=== PATIENT | female | born 1995 | race Caucasian/White ===

== ENCOUNTER 2017-01-18 17:54 | Emergency (ER) | payer OTHER ==
[~2017-01-18] VITALS: Ht 160 cm; Wt 59.0 kg
[~2017-01-18 17:54] MED LIST: ACET500C OR; CARB20TAXR PO; DARV100T; IBUP60TA PO; No Historical Meds; PERCOCET PO
[2017-01-18] MEDS ORDERED: NORT10CA2 PO (18:19)
[2017-01-18 18:41] LABS: MEAN CORPUSCULAR HEMOGLOBIN 30.3 pg (27.0-33.0); MEAN CORPUSCULAR HGB CONC 34.8 g/dl (32.0-36.5); MEAN CORPUSCULAR VOLUME 87.2 fl (80.0-96.0); RED CELL DISTRIBUTION WIDTH 11.7 % (11.5-14.5); WHITE BLOOD COUNT 6.8 K/mm3 (4.0-10.0)
[2017-01-18 19:02] LABS: ANION GAP 6 MEQ/L (8-16); BLOOD UREA NITROGEN 16 MG/DL (7-18); CALCIUM LEVEL 8.3 MG/DL (8.5-10.1); CARBON DIOXIDE LEVEL 30 MEQ/L (21-32); CHLORIDE LEVEL 109 MEQ/L (98-107); CREATININE FOR GFR 0.72 MG/DL (0.55-1.02); GLOMERULAR FILTRATION RATE > 60.0 (>60); GLUCOSE, FASTING 91 MG/DL (70-105); POTASSIUM SERUM 4.2 MEQ/L (3.5-5.1); SODIUM LEVEL 145 MEQ/L (136-145)
[2017-01-18 19:41] VITALS: BP 120/61
== END 2017-01-18 20:02 | disposition home or self-care (01) ==
LOC: EDBD 17:54 → M ED 19:46
DX: F41.9 Anxiety disorder, unspecified (principal); G40.909 Epilepsy, unspecified, not intractable, without status epilepticus; Z79.899 Other long term (current) drug therapy; Z88.5 Allergy status to narcotic agent; Z88.0 Allergy status to penicillin; Z88.1 Allergy status to other antibiotic agents; Z88.2 Allergy status to sulfonamides; Z87.891 Personal history of nicotine dependence; F51.5 Nightmare disorder

== ENCOUNTER → 2017-04-07 | Outpatient (REF) | payer OTHER ==
[~2017-04-07] MED LIST changes: +NORT10CA2 PO
== END ==
LOC: M LAB REF 20:27
PROVIDERS: ATTEND Physician Assistant
DX: R35.0 Frequency of micturition (principal)

== ENCOUNTER → 2017-04-09 | Outpatient (REF) | payer OTHER | LOC: M LAB REF 12:21 | PROVIDERS: ATTEND Physician Assistant | DX: J02.9 Acute pharyngitis, unspecified (principal) ==

== ENCOUNTER → 2017-06-13 | Outpatient (REF) | payer OTHER ==
[~2017-06-13] MED LIST changes: +FOLI1TAB4; +ZOFR4TAB3 PO
[2017-06-13 13:40] LABS: BASO % 0.6 % (0.0-1.0); EOS % 0.2 % (0.0-3.0); LARGE UNSTAINED CELL # 0.1 K/mm3 (0.0-0.4); LARGE UNSTAINED CELL % 2.2 % (0.0-4.0); LYMPH # 1.8 K/mm3 (1.5-6.5); LYMPH % 30.9 % (24.0-44.0); MEAN CORPUSCULAR HEMOGLOBIN 30.4 pg (27.0-33.0); MEAN CORPUSCULAR HGB CONC 34.1 g/dl (32.0-36.5); MEAN CORPUSCULAR VOLUME 89.1 fl (80.0-96.0); MONO # 0.3 K/mm3 (0.0-0.8); MONO % 5.3 % (0.0-5.0); NEUTROPHILS # 3.3 K/mm3 (1.8-7.7); NEUTROPHILS % 60.9 % (36.0-66.0); PLATELET COUNT, AUTOMATED 274 k/mm3 (150-450); RED CELL DISTRIBUTION WIDTH 12.1 % (11.5-14.5); WHITE BLOOD COUNT 5.4 K/mm3 (4.0-10.0)
[2017-06-13 13:46] LABS: CARBAMAZEPINE (TEGRETOL) LEVEL 7.7 UG/ML (4.0-10.0)
== END ==
LOC: M LABNEURO 12:38
PROVIDERS: ATTEND Physician Assistant Medical
DX: R56.9 Unspecified convulsions (principal); Z51.81 Encounter for therapeutic drug level monitoring

== ENCOUNTER → 2017-07-24 | Outpatient (REF) | payer OTHER ==
[2017-07-24 13:11] LABS: CONTROL LINE HCG INT CTR LINE PRESENT
== END ==
LOC: M LAB REF 10:32
PROVIDERS: ATTEND Obstetrics & Gynecology
DX: Z32.02 Encounter for pregnancy test, result negative (principal)

== ENCOUNTER 2017-07-31 11:51 | Emergency (ER) | payer OTHER ==
[~2017-07-31] VITALS: Ht 160 cm; Wt 56.8 kg
[~2017-07-31 11:51] MED LIST changes: -FOLI1TAB4; -ZOFR4TAB3 PO
[2017-07-31] MEDS ORDERED: METOCLOPRAMIDE INJ 10MG/2ML VIAL (J2765) IV ONE (12:30)
[2017-07-31] MEDS ORDERED: NS 1,000 ML IV ONE (12:30)
[2017-07-31] MEDS ORDERED: diphenhydrAMINE INJ 50MG/ML VIAL (J1200) IV ONE (12:30)
[2017-07-31 12:56] LABS: MEAN CORPUSCULAR HEMOGLOBIN 30.2 pg (27.0-33.0); MEAN CORPUSCULAR HGB CONC 34.1 g/dl (32.0-36.5); MEAN CORPUSCULAR VOLUME 88.5 fl (80.0-96.0); RED CELL DISTRIBUTION WIDTH 12.1 % (11.5-14.5); WHITE BLOOD COUNT 7.2 K/mm3 (4.0-10.0)
[2017-07-31 13:01] LABS: CONTROL LINE HCG INT CTR LINE PRESENT
[2017-07-31 13:10] LABS: ANION GAP 9 MEQ/L (8-16); BLOOD UREA NITROGEN 22 MG/DL (7-18); CALCIUM LEVEL 8.8 MG/DL (8.5-10.1); CARBON DIOXIDE LEVEL 29 MEQ/L (21-32); CHLORIDE LEVEL 107 MEQ/L (98-107); GLOMERULAR FILTRATION RATE > 60.0 (>60); GLUCOSE, FASTING 92 MG/DL (70-105); SODIUM LEVEL 145 MEQ/L (136-145)
[2017-07-31 14:28] VITALS: BP 110/58
--- NOTE | 2017-08-01 07:48 | ECGEPIP ---
Stationary ECG Study [facility] - ED Test Date: 2017-07-31 Pat Name: MARY AYON Department: Room: - Gender: F Inspector Chief: JKenan : 1995 Requested By: Michelle Atkinson Order Number: [id number] Reading MD: Michelle Atkinson Measurements Intervals Douglas Rate: 92 P: 62 DC: 130 QRS: 113 QRSD: 81 T: 40 QT: 327 QTc: 406 Interpretive Statements SINUS RHYTHM LEFT POSTERIOR FASCICULAR BLOCK NO PRIOR FOR COMPARISON Electronically Signed On 08-01-2017 7:48:41 EDT by Michelle Atkinson
== END 2017-07-31 14:30 | disposition home or self-care (01) ==
LOC: M ED 11:51
DX: R55 Syncope and collapse (principal); F32.9 Major depressive disorder, single episode, unspecified; Z79.899 Other long term (current) drug therapy; Z88.1 Allergy status to other antibiotic agents; Z88.0 Allergy status to penicillin; Z88.2 Allergy status to sulfonamides; Z88.5 Allergy status to narcotic agent; Z88.8 Allergy status to other drugs, medicaments and biological substances
CPT/HCPCS: 80048; 80156; 84703; 85027; 93000; 96361; 96374; 96375; 99284; J1200; J2765

== ENCOUNTER 2017-08-26 20:56 | Emergency (ER) | payer OTHER ==
[~2017-08-26] VITALS: Ht 160 cm; Wt 68.3 kg
[2017-08-26] MEDS ORDERED: FOLI1TAB4 (21:07)
[2017-08-26] MEDS ORDERED: NS 1,000 ML IV ONE (23:15)
[2017-08-26] MEDS ORDERED: ONDANSETRON 4MG/2ML VIAL (J2405) IV ONE (23:15)
[2017-08-26 23:27] LABS: BASO % 0.3 % (0.0-1.0); EOS % 0.1 % (0.0-3.0); IMMATURE GRANULOCYTE % 0.3 % (0-0); LYMPH % 24.3 % (24.0-44.0); MEAN CORPUSCULAR HEMOGLOBIN 30.2 pg (27.0-33.0); MEAN CORPUSCULAR HGB CONC 33.6 g/dl (32.0-36.5); MEAN CORPUSCULAR VOLUME 89.7 fl (80.0-96.0); MONO # 0.9 10^3/uL (0.0-0.8); MONO % 7.3 % (0.0-5.0); NEUTROPHILS # 8.3 10^3/uL (1.8-7.7); NEUTROPHILS % 67.7 % (36.0-66.0); PLATELET COUNT, AUTOMATED 320 10^3/uL (150-450); WHITE BLOOD COUNT 12.3 10^3/uL (4.0-10.0)
[2017-08-26 23:45] LABS: CONTROL LINE HCG INT CTR LINE PRESENT
[2017-08-26 23:50] LABS: ALBUMIN/GLOBULIN RATIO 1.05 (1.00-1.93); ALKALINE PHOSPHATASE 115 U/L (45-117); ALT/SGPT 21 U/L (12-78); ANION GAP 5 MEQ/L (8-16); AST/SGOT 12 U/L (15-37); BILIRUBIN,DIRECT < 0.1 MG/DL (0.0-0.2); BILIRUBIN,TOTAL 0.2 MG/DL (0.2-1.0); BLOOD UREA NITROGEN 23 MG/DL (7-18); CALCIUM LEVEL 9.4 MG/DL (8.5-10.1); CARBON DIOXIDE LEVEL 30 MEQ/L (21-32); CHLORIDE LEVEL 107 MEQ/L (98-107); CREATININE FOR GFR 0.73 MG/DL (0.55-1.02); GLOMERULAR FILTRATION RATE > 60.0 (>60); GLUCOSE, FASTING 96 MG/DL (70-105); POTASSIUM SERUM 3.8 MEQ/L (3.5-5.1); SODIUM LEVEL 142 MEQ/L (136-145); TOTAL PROTEIN 7.8 GM/DL (6.4-8.2)
[2017-08-27] MEDS ORDERED: ISOVUE-370 76% 100ML VIAL (Q9967) As Ordered ONE (00:32)
[2017-08-27 02:01] VITALS: BP 134/61
--- NOTE | 2017-08-27 02:40 | REPUSA ---
CLINICAL HISTORY: Abdominal pain. TECHNIQUE: Multiple axial, sagittal and coronal CT images were obtained through the abdomen and pelvi s after administration of intravenous contrast material. COMMENTS: Comparison to prior exam performed on 10/04/2016. Moderate large bowel fecal stasis. This has mildly increased. Interval appearance of mild diffuse thickening of the proximal small bowel loops. 1.8 cm ruptured follicle/corpus luteum cyst of the right ovary. Minimal free pelvic fluid in the cul-de-sac. Food residue in the stomach. The liver is mildly enlarged decreased attenuation without mass or defect. There is no intra or extra hepatic biliary ductal dilatation. The spleen is normal. The gallbladder is within normal limits. The pancreas is of normal contour and attenuation characteristics. There is no evidence of adrenal mass. Both kidneys demonstrate prompt and equal nephrograms. The kidneys are normal in size, shape and conf iguration. There is no evidence of renal or ureteral mass. No renal or ureteral calculi are identifie d. There is no hydroureter or hydronephrosis. No evidence for appendicitis. No evidence for small or large bowel obstruction. There is no evidence of abdominal ascites or lymphadenopathy. There is no evidence of intrinsic or extrinsic bladder mass. Images of the lung bases show no evidence of pleural or parenchymal mass. There are no pleural effusi ons. The bony structures are free of lytic or blastic lesions. IMPRESSION: Interval appearance of mild diffuse thickening of the proximal small bowels. Interval appearance of moderate large bowel fecal stasis. Ruptured follicle/corpus luteum cyst of the right ovary. Minimal free fluid is noted in the pelvic cul-de-sac. Food residue in the stomach. Thank you for your kind referral of this patient.
[2017-08-27] MEDS ORDERED: ZOFR4TAB3 PO (02:49)
== END 2017-08-27 02:51 | disposition home or self-care (01) ==
LOC: M ED 20:56
DX: N83.01 Follicular cyst of right ovary (principal); K52.9 Noninfective gastroenteritis and colitis, unspecified; K59.00 Constipation, unspecified; N80.9 Endometriosis, unspecified; R51 Headache; R56.9 Unspecified convulsions; F41.9 Anxiety disorder, unspecified; F32.9 Major depressive disorder, single episode, unspecified; Z79.899 Other long term (current) drug therapy; Z88.1 Allergy status to other antibiotic agents; Z88.8 Allergy status to other drugs, medicaments and biological substances; Z88.0 Allergy status to penicillin; Z88.2 Allergy status to sulfonamides
CPT/HCPCS: 74177; 80048; 80076; 81001; 81025; 83690; 84703; 85025; 87086; 96361; 96374; 99283; J2405; Q9967

== ENCOUNTER 2017-11-20 22:51 | Emergency (ER) | payer OTHER ==
[2017-11-21 00:58] LABS: BASO % 0.5 % (0.0-1.0); HEMATOCRIT 37.9 % (36.0-47.0); HEMOGLOBIN 13.1 g/dl (12.0-16.0); IMMATURE GRANULOCYTE % 0.3 % (0-0); LYMPH # 2.1 10^3/uL (1.5-6.5); LYMPH % 26.9 % (24.0-44.0); MEAN CORPUSCULAR HEMOGLOBIN 29.4 pg (27.0-33.0); MEAN CORPUSCULAR HGB CONC 34.6 g/dl (32.0-36.5); MONO # 0.8 10^3/uL (0.0-0.8); MONO % 10.4 % (0.0-5.0); NEUTROPHILS # 4.7 10^3/uL (1.8-7.7); NEUTROPHILS % 61.9 % (36.0-66.0); PLATELET COUNT, AUTOMATED 236 10^3/uL (150-450); RED BLOOD COUNT 4.46 10^6/uL (4.00-5.40); RED CELL DISTRIBUTION WIDTH 11.4 % (11.5-14.5); WHITE BLOOD COUNT 7.6 10^3/uL (4.0-10.0)
[2017-11-21] MEDS: ACETAMINOPHEN 325 MG TAB PO (00:59)
[2017-11-21 01:10] LABS: ANION GAP 7 MEQ/L (8-16); BLOOD UREA NITROGEN 15 MG/DL (7-18); CALCIUM LEVEL 7.8 MG/DL (8.5-10.1); CARBON DIOXIDE LEVEL 28 MEQ/L (21-32); CHLORIDE LEVEL 106 MEQ/L (98-107); GLOMERULAR FILTRATION RATE > 60.0 (>60); GLUCOSE, FASTING 90 MG/DL (70-105); HCG, SERUM QUANTITATIVE 169 MIU/ML; POTASSIUM SERUM 3.5 MEQ/L (3.5-5.1); SODIUM LEVEL 141 MEQ/L (136-145)
[2017-11-21 01:21] LABS: KETONE, URINE AUTO RFX NEGATIVE (NEGATIVE); MUCUS, URINE RFX SMALL (NEGATIVE); NITRITE, URINE AUTO RFX NEGATIVE (NEGATIVE); RBC, URINE AUTO RFX 0 /HPF (0-3); SPECIFIC GRAVITY UR AUTO RFX 1.029 (1.002-1.035); SQUAM EPITHELIAL CELL UR AURFX 2 /HPF (0-6); WBC, URINE AUTO RFX 2 /HPF (0-3)
[2017-11-21 01:23] LABS: LEUKOCYTE ESTERASE UR AUTO RFX TRACE (NEGATIVE)
[2017-11-21] MEDS: AZITHROMYCIN 250 MG TAB PO (01:44)
[2017-11-21] MEDS: diphenhydrAMINE 50 MG CAP PO (01:44)
== END 2017-11-21 01:59 | disposition home or self-care (01) ==
LOC: M ED 22:51
DX: O98.911 Unspecified maternal infectious and parasitic disease complicating pregnancy, first trimester (principal); Z32.01 Encounter for pregnancy test, result positive; Z3A.00 Weeks of gestation of pregnancy not specified; O99.351 Diseases of the nervous system complicating pregnancy, first trimester; O99.341 Other mental disorders complicating pregnancy, first trimester; O34.81 Maternal care for other abnormalities of pelvic organs, first trimester; Z79.899 Other long term (current) drug therapy; Z88.1 Allergy status to other antibiotic agents; Z88.8 Allergy status to other drugs, medicaments and biological substances; Z88.0 Allergy status to penicillin; Z88.2 Allergy status to sulfonamides
CPT/HCPCS: 76801

== ENCOUNTER → 2017-11-23 | Outpatient (CLI) | payer OTHER ==
[2017-11-23 20:29] LABS: HCG, SERUM QUANTITATIVE 806 MIU/ML
== END ==
LOC: M LAB 19:32
DX: Z36.89 Encounter for other specified antenatal screening (principal)
CPT/HCPCS: 84702

== ENCOUNTER → 2017-11-24 | Outpatient (REF) | payer OTHER ==
[2017-11-24 18:59] LABS: HCG, SERUM QUANTITATIVE 1122 MIU/ML
[2017-11-24 19:04] LABS: HEMATOCRIT 40.3 % (36.0-47.0); HEMOGLOBIN 13.5 g/dl (12.0-16.0); MEAN CORPUSCULAR HEMOGLOBIN 28.8 pg (27.0-33.0); MEAN CORPUSCULAR HGB CONC 33.5 g/dl (32.0-36.5); MEAN CORPUSCULAR VOLUME 86.1 fl (80.0-96.0); PLATELET COUNT, AUTOMATED 337 10^3/uL (150-450); RED BLOOD COUNT 4.68 10^6/uL (4.00-5.40); RED CELL DISTRIBUTION WIDTH 11.5 % (11.5-14.5); WHITE BLOOD COUNT 5.5 10^3/uL (4.0-10.0)
[2017-11-26 10:40] LABS: RUBELLA IgG QUALITATIVE IMMUNE (IMMUNE)
[2017-11-26 10:52] LABS: HEPATITIS B SURFACE ANTIGEN NEGATIVE (NEGATIVE)
[2017-11-26 11:09] LABS: HEPATITIS C VIRUS ABY INDEX 0.1 INDEX (<0.8)
[2017-11-26 11:10] LABS: HIV 1&2 SCREEN CENTAUR NEGATIVE (NEGATIVE)
== END ==
LOC: M LAB REF 16:41
DX: O36.80X0 Pregnancy with inconclusive fetal viability, not applicable or unspecified (principal)
CPT/HCPCS: 84702

== ENCOUNTER → 2017-12-19 | Outpatient (REF) | payer OTHER ==
[2017-12-19 14:10] LABS: CARBAMAZEPINE (TEGRETOL) LEVEL 9.2 UG/ML (4.0-10.0)
[2017-12-19 16:15] LABS: CHLAMYDIA DNA AMPLIFICATION NEGATIVE (NEGATIVE); GC DNA AMPLIFICATION NEGATIVE (NEGATIVE)
== END ==
LOC: M LAB REF 13:18
DX: O09.891 Supervision of other high risk pregnancies, first trimester (principal); G40.89 Other seizures; Z3A.09 9 weeks gestation of pregnancy
CPT/HCPCS: 80156

== ENCOUNTER 2017-12-23 16:36 | Emergency (ER) | payer OTHER | END 2017-12-23 20:15 | disposition left against medical advice (07) | LOC: M ED 16:36 | DX: N93.9 Abnormal uterine and vaginal bleeding, unspecified (principal); Z53.21 Procedure and treatment not carried out due to patient leaving prior to being seen by health care provider ==

== ENCOUNTER → 2018-01-12 | Outpatient (REF) | payer OTHER ==
[2018-01-12 13:42] LABS: INFLUENZA A AMPLIFICATION NEGATIVE (NEGATIVE); INFLUENZA B AMPLIFICATION NEGATIVE (NEGATIVE)
== END ==
LOC: M LAB REF 12:48
DX: J11.1 Influenza due to unidentified influenza virus with other respiratory manifestations (principal)

== ENCOUNTER → 2018-01-19 | Outpatient (CLI) | payer OTHER ==
[2018-01-19 18:51] LABS: CARBAMAZEPINE (TEGRETOL) LEVEL 7.2 UG/ML (4.0-10.0)
== END ==
LOC: M WUC 11:12
DX: R56.9 Unspecified convulsions (principal)
CPT/HCPCS: 80156

== ENCOUNTER → 2018-02-09 | Outpatient (REF) | payer OTHER ==
[2018-02-09 20:23] LABS: AMORPHOUS SEDIMENT LARGE (NEGATIVE); APPEARANCE, URINE TURBID (CLEAR); BACTERIA, URINE AUTO 1+ (NEGATIVE); BILIRUBIN, URINE AUTO NEGATIVE (NEGATIVE); BLOOD, URINE BLOOD NEGATIVE (NEGATIVE); COLOR, URINE YELLOW (YELLOW); GLUCOSE, URINE (UA) AUTO NEGATIVE (NEGATIVE); KETONE, URINE AUTO TRACE mg/dL (NEGATIVE); LEUKOCYTE ESTERASE, URINE AUTO 3+ (NEGATIVE); MUCUS, URINE SMALL (NEGATIVE); NITRITE, URINE AUTO NEGATIVE (NEGATIVE); PROTEIN, URINE AUTO 1+ mg/dL (NEGATIVE); RBC, URINE AUTO 0 /HPF (0-3); SPECIFIC GRAVITY URINE AUTO 1.032 (1.002-1.035); SQUAMOUS EPITHELIAL CELL UR AU 0 /HPF (0-6); UROBILINOGEN, URINE AUTO 0.2 mg/dL (0.0-2.0); WBC, URINE AUTO 5 /HPF (0-3)
== END ==
LOC: M LAB REF 16:50
DX: R10.2 Pelvic and perineal pain (principal)

== ENCOUNTER → 2018-04-27 | Outpatient (CLI) | payer OTHER ==
[2018-04-27 17:18] LABS: GLUCOSE CHALLENGE TEST 1 HOUR 106 MG/DL (LESS THAN 140)
[2018-04-27 17:18] LABS: CARBAMAZEPINE (TEGRETOL) LEVEL 6.2 UG/ML (4.0-10.0)
[2018-04-27 18:17] LABS: HEMATOCRIT 37.4 % (36.0-47.0); HEMOGLOBIN 12.5 g/dl (12.0-15.5); MEAN CORPUSCULAR HEMOGLOBIN 30.6 pg (27.0-33.0); MEAN CORPUSCULAR HGB CONC 33.4 g/dl (32.0-36.5); MEAN CORPUSCULAR VOLUME 91.7 fl (80.0-96.0); PLATELET COUNT, AUTOMATED 260 10^3/uL (150-450); RED BLOOD COUNT 4.08 10^6/uL (4.00-5.40); RED CELL DISTRIBUTION WIDTH 12.7 % (11.5-14.5); WHITE BLOOD COUNT 7.4 10^3/uL (4.0-10.0)
== END ==
LOC: M WUC 12:48
DX: O99.89 Other specified diseases and conditions complicating pregnancy, childbirth and the puerperium (principal); G40.89 Other seizures; Z3A.00 Weeks of gestation of pregnancy not specified
CPT/HCPCS: 82950

== ENCOUNTER 2018-07-01 08:03 | Inpatient (IN) | payer OTHER ==
[2018-07-01 09:25] LABS: HEMATOCRIT 35.7 % (36.0-47.0); HEMOGLOBIN 12.2 g/dl (12.0-15.5); MEAN CORPUSCULAR HEMOGLOBIN 31.1 pg (27.0-33.0); MEAN CORPUSCULAR HGB CONC 34.2 g/dl (32.0-36.5); MEAN CORPUSCULAR VOLUME 91.1 fl (80.0-96.0); PLATELET COUNT, AUTOMATED 142 10^3/uL (150-450); RED BLOOD COUNT 3.92 10^6/uL (4.00-5.40); RED CELL DISTRIBUTION WIDTH 11.7 % (11.5-14.5); WHITE BLOOD COUNT 10.5 10^3/uL (4.0-10.0)
[2018-07-01] MEDS: LR 1,000 ML IV ×4 (09:28→21:47)
[2018-07-01] MEDS: LABETALOL HCL 100 MG/20 ML VIAL IV (09:29)
[2018-07-01] MEDS: LR 300 ML IV (09:29)
[2018-07-01 09:45] LABS: ALT/SGPT 37 U/L (12-78); AST/SGOT 45 U/L (7-37); BILIRUBIN,TOTAL 0.2 MG/DL (0.2-1.0); GLOMERULAR FILTRATION RATE > 60.0 (>60); LDH LACTATE DEHYDROGENASE 296 U/L (84-246); URIC ACID 6.8 MG/DL (2.6-6.0)
[2018-07-01] MEDS: CLINDAMYCIN 600 MG in APPROPRIATE DILUENT 1 EA IV (10:00)
[2018-07-01] MEDS ORDERED: CLINDAMYCIN 600 MG/50 ML PREMIX BAG As Ordered (10:05)
[2018-07-01] MEDS: BICITRA 30ML SOLN UDC PO (10:08)
[2018-07-01] MEDS ORDERED: OXYTOCIN INJ 10 UNITS/ML VIAL (J2590) As Ordered ×3 (10:12)
[2018-07-01] MEDS ORDERED: MORPHINE PRES-FREE INJ 10 MG/10 ML VIAL (J2274) As Ordered (10:12)
[2018-07-01] MEDS ORDERED: NALOXONE INJ 0.4 MG/1 ML VIAL (J2310) IV ×2 (10:29)
[2018-07-01] MEDS ORDERED: ONDANSETRON 4MG/2ML VIAL (J2405) IV ×3 (10:29→11:45)
[2018-07-01] MEDS ORDERED: METOCLOPRAMIDE INJ 10MG/2ML VIAL (J2765) IV (10:29)
[2018-07-01] MEDS ORDERED: ePHEDrine SULFATE 25 MG/5 ML(5MG/ML) SYRINGE As Ordered (10:32)
[2018-07-01] MEDS ORDERED: PHENYLephrine HCL 500 MCG/5 ML (100MCG/ML) SYRINGE (J2370) As Ordered (10:36)
[2018-07-01] MEDS ORDERED: KETOROLAC 60 MG/2 ML VIAL (J1885) As Ordered (10:53)
[2018-07-01] MEDS ORDERED: ONDANSETRON 4MG/2ML VIAL (J2405) As Ordered (10:53)
[2018-07-01 11:14] LABS: CORD GAS O2 SAT A 34.6 %; CORD GAS PCO2 A 63.3 mmHg; CORD GAS PH A 7.231 UNITS; CORD GAS PO2 A 17.8 mmHg; CORD GAS SBC A 20.4 MEQ/L; CORD GAS TCO2 A 27.9 MEQ/L
[2018-07-01 11:16] LABS: CORD GAS ABE V -3.4; CORD GAS HCO3 V 23.3 MEQ/L; CORD GAS O2 SAT V 64.6 %; CORD GAS PCO2 V 48.2 mmHg; CORD GAS PH V 7.303 UNITS; CORD GAS PO2 V 26.7 mmHg; CORD GAS SBC V 20.8 MEQ/L; CORD GAS TCO2 V 24.8 MEQ/L
[2018-07-01 11:28] LABS: AMPHETAMINES URINE REFLEX NEGATIVE (NEGATIVE); BARBITURATES URINE REFLEX NEGATIVE (NEGATIVE); BENZODIAZEPINES URINE REFLEX NEGATIVE (NEGATIVE); CANNABINOIDS URINE REFLEX NEGATIVE (NEGATIVE); COCAINE METABOLITE URINE REFLE NEGATIVE (NEGATIVE); METHADONE URINE REFLEX NEGATIVE (NEGATIVE); OPIATES URINE REFLEX NEGATIVE (NEGATIVE); PHENCYCLIDINE URINE REFLEX NEGATIVE (NEGATIVE)
[2018-07-01] MEDS ORDERED: RHOGAM 300 MCG (1500 IU) INJ (J2790) IM (11:45)
[2018-07-01] MEDS ORDERED: METHYLERGONOVINE MALEATE 0.2 MG TAB PO (11:45)
[2018-07-01] MEDS ORDERED: fentaNYL 100 MCG/2 ML INJECTION (J3010) IV (11:45)
[2018-07-01] MEDS ORDERED: MEASLES,MUMPS,RUBELLA VACCINE INJ (MMR-II) (90707) SC (11:45)
[2018-07-01] MEDS ORDERED: NORCO, ANEXSIA 5/325MG TABLET (HYDROcodone/ACETAMINOPHEN) PO ×2 (11:45)
[2018-07-01] MEDS ORDERED: PERCOCET 5MG/325MG TAB As Ordered (12:29)
[2018-07-01] MEDS: PERCOCET 5MG/325MG TAB PO ×2 (12:32→21:36)
[2018-07-01] MEDS: carBAMazepine XR 200 MG TAB PO ×2 (14:08→21:35)
[2018-07-01] MEDS: NALBUPHINE HCL 10 MG/ML AMP (J2300) IV (17:10)
[2018-07-01] MEDS: IBUPROFEN 800 MG TAB PO (19:24)
[2018-07-01] MEDS: DOCUSATE SODIUM 100 MG CAP PO (21:36)
[2018-07-02] MEDS: IBUPROFEN 800 MG TAB PO ×3 (04:28→20:06)
[2018-07-02] MEDS: PERCOCET 5MG/325MG TAB PO ×3 (05:29→20:05)
[2018-07-02 07:09] LABS: HEMATOCRIT 30.9 % (36.0-47.0); HEMOGLOBIN 10.5 g/dl (12.0-15.5); MEAN CORPUSCULAR HEMOGLOBIN 31.3 pg (27.0-33.0); RED BLOOD COUNT 3.36 10^6/uL (4.00-5.40); RED CELL DISTRIBUTION WIDTH 11.9 % (11.5-14.5); WHITE BLOOD COUNT 8.6 10^3/uL (4.0-10.0)
[2018-07-02 07:19] LABS: ALT/SGPT 37 U/L (12-78); AST/SGOT 44 U/L (7-37); BILIRUBIN,TOTAL 0.2 MG/DL (0.2-1.0); CREATININE FOR GFR 0.59 MG/DL (0.55-1.30); GLOMERULAR FILTRATION RATE > 60.0 (>60); LDH LACTATE DEHYDROGENASE 315 U/L (84-246); URIC ACID 5.7 MG/DL (2.6-6.0)
[2018-07-02 07:54] LABS: PLATELET COUNT, AUTOMATED 95 10^3/uL (150-450)
[2018-07-02 07:55] LABS: IMMATURE PLATELET FRACTION % 7.7 % (0.0-9.6)
[2018-07-02] MEDS: PRENATAL VITAMINS CHEWABLE TABLET PO (09:12)
[2018-07-02] MEDS: carBAMazepine XR 200 MG TAB PO ×2 (09:13→20:06)
[2018-07-02] MEDS: DOCUSATE SODIUM 100 MG CAP PO ×2 (09:13→20:04)
[2018-07-02] MEDS: LABETALOL 200 MG TAB PO (22:39)
[2018-07-03] MEDS: IBUPROFEN 800 MG TAB PO ×3 (04:28→19:50)
[2018-07-03] MEDS: PERCOCET 5MG/325MG TAB PO ×4 (04:29→22:31)
[2018-07-03 08:06] LABS: HEMATOCRIT 30.4 % (36.0-47.0); HEMOGLOBIN 10.2 g/dl (12.0-15.5); MEAN CORPUSCULAR HEMOGLOBIN 31.2 pg (27.0-33.0); MEAN CORPUSCULAR HGB CONC 33.6 g/dl (32.0-36.5); PLATELET COUNT, AUTOMATED 120 10^3/uL (150-450); RED BLOOD COUNT 3.27 10^6/uL (4.00-5.40); RED CELL DISTRIBUTION WIDTH 12.2 % (11.5-14.5); WHITE BLOOD COUNT 7.3 10^3/uL (4.0-10.0)
[2018-07-03] MEDS: PRENATAL VITAMINS CHEWABLE TABLET PO (08:21)
[2018-07-03] MEDS: DOCUSATE SODIUM 100 MG CAP PO ×2 (08:21→19:49)
[2018-07-03] MEDS: LABETALOL 200 MG TAB PO ×2 (08:22→20:44)
[2018-07-03] MEDS: carBAMazepine XR 200 MG TAB PO ×2 (08:22→20:42)
[2018-07-03 08:26] LABS: ALT/SGPT 32 U/L (12-78); AST/SGOT 28 U/L (7-37); BILIRUBIN,TOTAL 0.1 MG/DL (0.2-1.0); CREATININE FOR GFR 0.67 MG/DL (0.55-1.30); GLOMERULAR FILTRATION RATE > 60.0 (>60); LDH LACTATE DEHYDROGENASE 280 U/L (84-246); URIC ACID 6.7 MG/DL (2.6-6.0)
[2018-07-03] MEDS: MOM 30ML SUSPENSION UDC PO (08:29)
[2018-07-04] MEDS: IBUPROFEN 800 MG TAB PO (03:50)
[2018-07-04] MEDS: PERCOCET 5MG/325MG TAB PO (07:37)
[2018-07-04] MEDS: LABETALOL 200 MG TAB PO (07:38)
[2018-07-04] MEDS: MOM 30ML SUSPENSION UDC PO (07:38)
[2018-07-04] MEDS: PRENATAL VITAMINS CHEWABLE TABLET PO (10:01)
[2018-07-04] MEDS: carBAMazepine XR 200 MG TAB PO (10:01)
[2018-07-04] MEDS: DOCUSATE SODIUM 100 MG CAP PO (10:01)
== END 2018-07-04 10:30 | disposition home or self-care (01) | DRG 560 ==
LOC: M LDO 08:03 → M LDI 09:33 → M OBS 13:09
PROC: 10E0XZZ Delivery of Products of Conception, External Approach (ICD-10-PCS; principal; 2018-07-01 10:19)
PROC: 0HB7XZZ Excision of Abdomen Skin, External Approach (ICD-10-PCS; 2018-07-01 10:19)
DX: O14.24 HELLP syndrome, complicating childbirth (principal); Z37.0 Single live birth; Z3A.35 35 weeks gestation of pregnancy; O34.211 Maternal care for low transverse scar from previous cesarean delivery; Z88.0 Allergy status to penicillin; Z88.2 Allergy status to sulfonamides; Z88.8 Allergy status to other drugs, medicaments and biological substances; O60.14X0 Preterm labor third trimester with preterm delivery third trimester, not applicable or unspecified

== ENCOUNTER → 2018-08-05 | Outpatient (CLI) | payer OTHER ==
[2018-08-07 09:57] LABS: RUBEOLA IgG ANTIBODY 68.7 AU/mL (Immune >29.9)
[2018-08-07 09:57] LABS: MUMPS VIRUS IgG ANTIBODY <9.0 AU/mL (Immune >10.9)
[2018-08-07 11:10] LABS: RUBELLA IgG QUALITATIVE IMMUNE (IMMUNE)
== END ==
LOC: M WUC 17:50
DX: Z02.1 Encounter for pre-employment examination (principal)
CPT/HCPCS: 86762

== ENCOUNTER → 2018-08-10 | Outpatient (REF) | payer OTHER ==
[2018-08-10 16:41] LABS: CARBAMAZEPINE (TEGRETOL) LEVEL 7.1 UG/ML (4.0-10.0)
== END ==
LOC: M LABNEURO 14:14
DX: G40.909 Epilepsy, unspecified, not intractable, without status epilepticus (principal)

== ENCOUNTER 2018-12-05 21:43 | Emergency (ER) | payer OTHER ==
[~2018-12-05] VITALS: Ht 160 cm; Wt 61.4 kg
[2018-12-05 21:43] VITALS: BP 138/86
[~2018-12-05 21:43] MED LIST changes: +FOLI1TAB11; +IBUP80TA PO; +LABE20TAB PO; +MECL-68 PO; +PREN1CHW4 PO; +ZITHTAB PO; +ZOFR4TAB14 PO
[2018-12-05] MEDS ORDERED: PSEUDOEPHEDRINE 30 MG TAB PO STA (22:12)
[2018-12-05] MEDS ORDERED: IBUPROFEN 600 MG TAB PO ONE (22:15)
[2018-12-05] MEDS ORDERED: LIDOCAINE VISCOUS 2% SOLN 15ML UDC SS ONE (22:15)
[2018-12-05 22:44] LABS: INFLUENZA A AMPLIFICATION NEGATIVE (NEGATIVE); INFLUENZA B AMPLIFICATION NEGATIVE (NEGATIVE)
[2018-12-05 22:54] LABS: MONO SCRN NEGATIVE (NEGATIVE)
[2018-12-05] MEDS ORDERED: LIDO1SOL7 PO (23:08)
[2018-12-05] MEDS ORDERED: IBUP-1022 PO (23:08)
[2018-12-05] MEDS ORDERED: PSEU1TAB3 PO (23:08)
== END 2018-12-05 23:33 | disposition home or self-care (01) ==
LOC: M ED 21:43
DX: J02.8 Acute pharyngitis due to other specified organisms (principal); R05 Cough; R51 Headache; Z20.828 Contact with and (suspected) exposure to other viral communicable diseases; Z88.1 Allergy status to other antibiotic agents; Z88.5 Allergy status to narcotic agent; Z88.2 Allergy status to sulfonamides; Z88.0 Allergy status to penicillin; Z79.899 Other long term (current) drug therapy

== ENCOUNTER → 2019-02-12 | Outpatient (CLI) | payer OTHER ==
[~2019-02-12] MED LIST changes: +IBUP-1022 PO; +IBUP600T42 PO; -IBUP60TA PO; +LIDO1SOL7 PO; +PSEU1TAB3 PO
--- NOTE | 2019-02-12 15:58 | REP ---
Clinical: Acute upper respiratory tract symptoms. Comparison: 11/20/2011 Technique: PA and lateral. Findings: The mediastinum and cardiac silhouette are normal. The lung soctt are clear and without acute consolidation, effusion, or pneumothorax. The skeletal structures are intact and normal. Impression: 1. No acute cardiopulmonary process. Electronically Signed by Diogenes Bay MD 02/12/2019 03:29 P
[2019-02-12 16:41] LABS: BASO % 0.2 % (0.0-1.0); EOS % 0.2 % (0.0-3.0); HEMATOCRIT 40.3 % (36.0-47.0); HEMOGLOBIN 13.5 g/dl (12.0-15.5); LYMPH # 0.9 10^3/uL (1.5-6.5); LYMPH % 21.5 % (24.0-44.0); MEAN CORPUSCULAR HEMOGLOBIN 27.5 pg (27.0-33.0); MEAN CORPUSCULAR HGB CONC 33.5 g/dl (32.0-36.5); MEAN CORPUSCULAR VOLUME 82.1 fl (80.0-96.0); MONO # 0.6 10^3/uL (0.0-0.8); MONO % 14.1 % (0.0-5.0); NEUTROPHILS # 2.6 10^3/uL (1.8-7.7); NEUTROPHILS % 63.8 % (36.0-66.0); PLATELET COUNT, AUTOMATED 252 10^3/uL (150-450); RED BLOOD COUNT 4.91 10^6/uL (4.00-5.40)
== END ==
LOC: M WUC 15:05
PROVIDERS: ATTEND Physician Assistant
DX: Z87.09 Personal history of other diseases of the respiratory system (principal)

== ENCOUNTER 2019-02-14 01:25 | Emergency (ER) | payer OTHER ==
[~2019-02-14] VITALS: Ht 160 cm; Wt 61.4 kg
[2019-02-14 01:25] VITALS: BP 120/75
[~2019-02-14 01:25] MED LIST changes: -LIDO1SOL7 PO; +LIDO1SOL8 PO
[2019-02-14 02:29] LABS: INFLUENZA A AMPLIFICATION POSITIVE (NEGATIVE); INFLUENZA B AMPLIFICATION NEGATIVE (NEGATIVE)
== END 2019-02-14 02:58 | disposition left against medical advice (07) ==
LOC: M ED 01:25
DX: Z53.21 Procedure and treatment not carried out due to patient leaving prior to being seen by health care provider (principal)

== ENCOUNTER → 2019-03-11 | Outpatient (CLI) | payer OTHER ==
[2019-03-11 10:46] LABS: BASO % 0.4 % (0.0-1.0); EOS # 0.3 10^3/uL (0.0-0.50); EOS % 2.9 % (0.0-3.0); HEMATOCRIT 42.7 % (36.0-47.0); HEMOGLOBIN 13.9 g/dl (12.0-15.5); LYMPH # 2.4 10^3/uL (1.5-6.5); LYMPH % 25.3 % (24.0-44.0); MEAN CORPUSCULAR HEMOGLOBIN 27.7 pg (27.0-33.0); MEAN CORPUSCULAR HGB CONC 32.6 g/dl (32.0-36.5); MEAN CORPUSCULAR VOLUME 85.1 fl (80.0-96.0); MONO # 0.8 10^3/uL (0.0-0.8); MONO % 8.1 % (0.0-5.0); NEUTROPHILS # 5.8 10^3/uL (1.8-7.7); NEUTROPHILS % 62.7 % (36.0-66.0); PLATELET COUNT, AUTOMATED 287 10^3/uL (150-450); RED BLOOD COUNT 5.02 10^6/uL (4.00-5.40); WHITE BLOOD COUNT 9.3 10^3/uL (4.0-10.0)
[2019-03-11 11:22] LABS: ALBUMIN 3.9 GM/DL (3.2-5.2); ALT/SGPT 17 U/L (12-78); AMYLASE 45 U/L (25-115); BILIRUBIN,TOTAL 0.3 MG/DL (0.2-1.0); BLOOD UREA NITROGEN 19 MG/DL (7-18); CALCIUM LEVEL 8.6 MG/DL (8.5-10.1); CARBON DIOXIDE LEVEL 27 MEQ/L (21-32); CHLORIDE LEVEL 108 MEQ/L (98-107); CREATININE FOR GFR 0.62 MG/DL (0.55-1.30); FREE T4 1.23 NG/DL (0.76-1.46); GLOMERULAR FILTRATION RATE > 60.0 (>60); GLUCOSE, FASTING 90 MG/DL (70-100); LIPASE 129 U/L (73-393); POTASSIUM SERUM 4.1 MEQ/L (3.5-5.1); SODIUM LEVEL 140 MEQ/L (136-145); THYROID STIMULATING HORMONE 0.008 uIU/ML (0.358-3.740); TOTAL PROTEIN 7.2 GM/DL (6.4-8.2)
[2019-03-11 11:30] LABS: ERYTHROCYTE SEDIMENTATION RATE 12 mm/hr (0-20)
== END ==
LOC: M WUC 09:41
PROVIDERS: ATTEND Physician Assistant
DX: R11.2 Nausea with vomiting, unspecified (principal)

== ENCOUNTER → 2019-04-20 | Outpatient (REF) | payer OTHER | LOC: M LAB REF 19:26 | PROVIDERS: ATTEND Physician Assistant | DX: J02.9 Acute pharyngitis, unspecified (principal) ==

== ENCOUNTER 2019-05-25 09:20 | Emergency (ER) | payer OTHER ==
[~2019-05-25] VITALS: Ht 160 cm; Wt 61.4 kg
[2019-05-25] MEDS ORDERED: IBUP-1022 (09:32)
[2019-05-25] MEDS ORDERED: KETOROLAC 60 MG/2 ML VIAL (J1885) IM ONE (11:30)
[2019-05-25 12:09] VITALS: BP 129/79
[2019-05-25] MEDS ORDERED: IMIT50TA PO (12:09)
[2019-05-25] MEDS ORDERED: CARB1TAB20 PO (12:09)
== END 2019-05-25 12:19 | disposition home or self-care (01) ==
LOC: M ED 09:20
DX: Z76.0 Encounter for issue of repeat prescription (principal); G43.909 Migraine, unspecified, not intractable, without status migrainosus; R56.9 Unspecified convulsions; F33.9 Major depressive disorder, recurrent, unspecified; F41.9 Anxiety disorder, unspecified; Z79.899 Other long term (current) drug therapy; Z88.0 Allergy status to penicillin; Z88.1 Allergy status to other antibiotic agents; Z88.2 Allergy status to sulfonamides; Z88.5 Allergy status to narcotic agent; Z88.8 Allergy status to other drugs, medicaments and biological substances
CPT/HCPCS: 96372; 99283; J1885

== ENCOUNTER 2019-07-01 22:59 | Emergency (ER) | payer OTHER ==
[~2019-07-01] VITALS: Ht 160 cm; Wt 61.4 kg
[~2019-07-01 22:59] MED LIST changes: +CARB1TAB20 PO; +IBUP-1022; +IMIT50TA PO; -MECL-68 PO; +MECL1TAB31 PO
[2019-07-01 23:30] VITALS: BP 121/75
[2019-07-02] MEDS ORDERED: NS 1,000 ML IV ONE
[2019-07-02] MEDS ORDERED: KETOROLAC 30 MG/ML VIAL (J1885) IV ONE
[2019-07-02] MEDS ORDERED: diphenhydrAMINE INJ 50MG/ML VIAL (J1200) IV ONE
[2019-07-02] MEDS ORDERED: METOCLOPRAMIDE INJ 10MG/2ML VIAL (J2765) IV ONE
[2019-07-02 01:05] LABS: BLOOD UREA NITROGEN 15 MG/DL (7-18); CALCIUM LEVEL 8.5 MG/DL (8.5-10.1); CARBON DIOXIDE LEVEL 27 MEQ/L (21-32); CHLORIDE LEVEL 110 MEQ/L (98-107); CREATININE FOR GFR 0.64 MG/DL (0.55-1.30); GLOMERULAR FILTRATION RATE > 60.0 (>60); GLUCOSE, FASTING 100 MG/DL (70-100); POTASSIUM SERUM 3.7 MEQ/L (3.5-5.1); SODIUM LEVEL 144 MEQ/L (136-145)
== END 2019-07-02 02:18 | disposition home or self-care (01) ==
LOC: M ED 22:59
DX: G43.909 Migraine, unspecified, not intractable, without status migrainosus (principal); R55 Syncope and collapse; Z86.69 Personal history of other diseases of the nervous system and sense organs; Z79.899 Other long term (current) drug therapy; Z88.0 Allergy status to penicillin; Z88.1 Allergy status to other antibiotic agents; Z88.2 Allergy status to sulfonamides; Z88.5 Allergy status to narcotic agent; Z88.8 Allergy status to other drugs, medicaments and biological substances
CPT/HCPCS: 80048; 96361; 96374; 96375; 99284; J1200; J1885; J2765

== ENCOUNTER → 2019-09-26 | Outpatient (REF) | payer OTHER ==
[~2019-09-26] MED LIST changes: +MECL-68 PO; -MECL1TAB31 PO
== END ==
LOC: M LAB REF 13:26
PROVIDERS: ATTEND Physician Assistant
DX: J02.9 Acute pharyngitis, unspecified (principal)

== ENCOUNTER → 2020-03-14 | Outpatient (REF) | payer OTHER ==
[~2020-03-14] MED LIST changes: -LIDO1SOL8 PO; +LIDO2SOL17 PO; -MECL-68 PO; +MECL1TAB31 PO
== END ==
LOC: M LAB REF 17:05
PROVIDERS: ATTEND Obstetrics & Gynecology
DX: Z32.01 Encounter for pregnancy test, result positive (principal)

== ENCOUNTER → 2020-03-16 | Outpatient (REF) | payer OTHER | LOC: M LAB REF 17:18 | PROVIDERS: ATTEND Obstetrics & Gynecology | DX: O36.80X0 Pregnancy with inconclusive fetal viability, not applicable or unspecified (principal) ==

== ENCOUNTER → 2020-03-23 | Outpatient (REF) | payer OTHER | LOC: M LAB REF 17:31 | PROVIDERS: ATTEND Obstetrics & Gynecology | DX: O36.80X0 Pregnancy with inconclusive fetal viability, not applicable or unspecified (principal) ==

== ENCOUNTER → 2020-04-04 | Outpatient (CLI) | payer OTHER ==
--- NOTE | 2020-04-05 03:02 | REP ---
Clinical: Dating and viability. Technique: First trimester transabdominal obstetrical ultrasound with color Doppler evaluation. Findings: Ultrasound examination demonstrates single live early intrauterine . Gestational sac with yolk sac and pole identified. CRL of 10 mm corresponds to 7 weeks 0 days gestational age with estimated date of delivery 11/21/2020. heart rate equals 134 beats per minute. No gross abnormalities are identified. Cervix measures 3.4 cm in length and appears closed. Maternal ovaries are normal. Left corpus luteal cyst noted. Impression: 1. Single live early intrauterine in 7 weeks 0 days gestational age. Complete anatomical assessment should be performed at 19-20 weeks.
== END ==
LOC: M WHC 12:54
PROVIDERS: ATTEND Obstetrics & Gynecology
DX: O36.80X0 Pregnancy with inconclusive fetal viability, not applicable or unspecified (principal); Z3A.01 Less than 8 weeks gestation of pregnancy

== ENCOUNTER → 2020-04-20 | Outpatient (REF) | payer OTHER ==
[2020-04-20 17:54] LABS: HEMATOCRIT 39.4 % (36.0-47.0); HEMOGLOBIN 13.6 g/dl (12.0-15.5); MEAN CORPUSCULAR HEMOGLOBIN 30.1 pg (27.0-33.0); MEAN CORPUSCULAR HGB CONC 34.5 g/dl (32.0-36.5); MEAN CORPUSCULAR VOLUME 87.2 fl (80.0-96.0); PLATELET COUNT, AUTOMATED 280 10^3/uL (150-450); RED BLOOD COUNT 4.52 10^6/uL (4.00-5.40); WHITE BLOOD COUNT 8.9 10^3/uL (4.0-10.0)
[2020-04-20 18:33] LABS: HCG, SERUM QUANTITATIVE 100799 MIU/ML
[2020-04-21 09:20] LABS: HEPATITIS B SURFACE ANTIGEN NEGATIVE (NEGATIVE)
[2020-04-21 09:49] LABS: HEPATITIS C VIRUS ABY INDEX 0.2 INDEX (<0.8); HIV 1&2 SCREEN CENTAUR NEGATIVE (NEGATIVE)
== END ==
LOC: M LAB REF 17:28
PROVIDERS: ATTEND Obstetrics & Gynecology
DX: Z34.81 Encounter for supervision of other normal pregnancy, first trimester (principal)

== ENCOUNTER → 2020-08-29 | Outpatient (CLI) | payer OTHER ==
[~2020-08-29] MED LIST changes: +PNV-TAB2 PO
[2020-08-29 12:44] LABS: HEMATOCRIT 37.5 % (36.0-47.0); HEMOGLOBIN 12.1 g/dl (12.0-15.5); MEAN CORPUSCULAR HGB CONC 32.3 g/dl (32.0-36.5); MEAN CORPUSCULAR VOLUME 92.8 fl (80.0-96.0); PLATELET COUNT, AUTOMATED 232 10^3/uL (150-450); RED BLOOD COUNT 4.04 10^6/uL (4.00-5.40); WHITE BLOOD COUNT 9.6 10^3/uL (4.0-10.0)
== END ==
LOC: M WUC 09:02
PROVIDERS: ATTEND Obstetrics & Gynecology
DX: Z34.83 Encounter for supervision of other normal pregnancy, third trimester (principal)

== ENCOUNTER 2020-09-11 12:24 | Outpatient (CLI) | payer OTHER ==
[~2020-09-11] VITALS: Ht 160 cm; Wt 80.3 kg
[~2020-09-11 12:24] MED LIST changes: -PNV-TAB2 PO
[2020-09-11] MEDS ORDERED: PNV-TAB2 PO (12:44)
[2020-09-11 12:50] VITALS: BP 116/64
== END 2020-09-11 15:00 | disposition home or self-care (01) ==
LOC: M LDO 12:24
PROVIDERS: ATTEND Obstetrics & Gynecology
DX: O26.853 Spotting complicating pregnancy, third trimester (principal); Z3A.29 29 weeks gestation of pregnancy

== ENCOUNTER 2020-10-14 13:17 | Outpatient (CLI) | payer OTHER ==
[~2020-10-14] VITALS: Ht 160 cm; Wt 86.9 kg
[~2020-10-14 13:17] MED LIST changes: +PNV-TAB2 PO
[2020-10-14] MEDS ORDERED: MAPA500T2 PO (13:35)
[2020-10-14 13:43] VITALS: BP 131/76
[2020-10-14 13:53] VITALS: BP 123/74
== END 2020-10-14 15:45 | disposition home or self-care (01) ==
LOC: M LDO 13:17
PROVIDERS: ATTEND Obstetrics & Gynecology
DX: O26.893 Other specified pregnancy related conditions, third trimester (principal); R10.9 Unspecified abdominal pain; R03.0 Elevated blood-pressure reading, without diagnosis of hypertension; Z3A.34 34 weeks gestation of pregnancy

== ENCOUNTER → 2020-10-19 | Outpatient (REF) | payer OTHER ==
[~2020-10-19] MED LIST changes: +MAPA500T2 PO
== END ==
LOC: M LAB REF 12:34
PROVIDERS: ATTEND Obstetrics & Gynecology
DX: O26.853 Spotting complicating pregnancy, third trimester (principal)

== ENCOUNTER 2020-11-07 18:35 | Inpatient (IN) | payer OTHER ==
[~2020-11-07] VITALS: Ht 160 cm; Wt 87.0 kg
[2020-11-07 19:02] VITALS: BP 128/79
[2020-11-07] MEDS ORDERED: LR 1,000 ML IV ONE (19:45)
[2020-11-07 20:34] LABS: HEMATOCRIT 36.9 % (36.0-47.0); HEMOGLOBIN 12.1 g/dl (12.0-15.5); MEAN CORPUSCULAR HEMOGLOBIN 29.1 pg (27.0-33.0); MEAN CORPUSCULAR HGB CONC 32.8 g/dl (32.0-36.5); MEAN CORPUSCULAR VOLUME 88.7 fl (80.0-96.0); PLATELET COUNT, AUTOMATED 227 10^3/uL (150-450); RED BLOOD COUNT 4.16 10^6/uL (4.00-5.40); WHITE BLOOD COUNT 10.4 10^3/uL (4.0-10.0)
[2020-11-07 20:50] VITALS: BP 130/69
[2020-11-07] MEDS: LR 1,000 ML IV SCH (21:15)
[2020-11-07 21:52] VITALS: BP 121/84
[2020-11-07] MEDS ORDERED: CLINDAMYCIN 900 MG in IV 1 EA IV ONE (22:45)
[2020-11-07] MEDS ORDERED: BICITRA 30ML SOLN UDC PO ONE (22:45)
[2020-11-07 23:33] VITALS: BP 129/67
[2020-11-08] VITALS (11 sets, daily range): BP systolic 102–158; BP diastolic 57–90
[2020-11-08] MEDS: LR 1,000 ML IV SCH ×3 (06:20→22:45)
[2020-11-08] MEDS ORDERED: ONDANSETRON 4MG/2ML VIAL As Ordered ONE (11:58)
[2020-11-08] MEDS ORDERED: ATROPINE SULF 0.4 MG/ML 1ML VIAL (J0461) As Ordered ONE (11:58)
[2020-11-08] MEDS ORDERED: OXYTOCIN INJ 10 UNITS/ML VIAL (J2590) As Ordered ONE (11:58)
[2020-11-08] MEDS ORDERED: MORPHINE PRES-FREE INJ 10 MG/10 ML VIAL (J2274) As Ordered ONE (11:58)
[2020-11-08] MEDS ORDERED: ePHEDrine SULFATE 25 MG/5 ML(5MG/ML) SYRINGE As Ordered ONE (12:10)
[2020-11-08 12:15] LABS: CORD GAS ABE V -4.9; CORD GAS HCO3 V 23.3 MEQ/L; CORD GAS O2 SAT V 51.2 %; CORD GAS PCO2 V 55.3 mmHg; CORD GAS PH V 7.242 UNITS; CORD GAS SBC V 19.4 MEQ/L
[2020-11-08 12:17] LABS: CORD GAS ABE A -2.4; CORD GAS HCO3 A 27.5 MEQ/L; CORD GAS O2 SAT A 38.2 %; CORD GAS PCO2 A 71.6 mmHg; CORD GAS PH A 7.203 UNITS; CORD GAS PO2 A 21.1 mmHg; CORD GAS TCO2 A 29.7 MEQ/L
[2020-11-08] MEDS ORDERED: OXYTOCIN DRIP 30 UNITS in IV 1 EA IV SCH (12:41)
[2020-11-08] MEDS ORDERED: METOCLOPRAMIDE INJ 10MG/2ML VIAL (J2765 PER 1) As Ordered ONE (12:41)
[2020-11-08] MEDS ORDERED: MOM 30ML SUSPENSION UDC PO PRN (12:45)
[2020-11-08] MEDS ORDERED: PERCOCET 5MG/325MG TAB PO PRN ×2 (12:45→13:00)
[2020-11-08] MEDS ORDERED: MEASLES,MUMPS,RUBELLA VACCINE INJ (MMR-II) (90707) SC SCH (12:45)
[2020-11-08] MEDS ORDERED: RHOGAM 300 MCG (1500 IU) INJ (J2790) IM SCH (12:45)
[2020-11-08] MEDS ORDERED: fentaNYL 100 MCG/2 ML INJECTION (J3010) IV PRN (13:00)
[2020-11-08] MEDS ORDERED: METOCLOPRAMIDE INJ 10MG/2ML VIAL (J2765 PER 1) IV PRN ×2 (13:00→14:00)
[2020-11-08] MEDS ORDERED: ONDANSETRON 4MG/2ML VIAL IV PRN ×2 (13:00→14:00)
[2020-11-08] MEDS ORDERED: LR 1,000 ML IV SCH (13:00)
[2020-11-08] MEDS ORDERED: OXYTOCIN 30 UNITS IN 0.9% NaCl 500ML IV BAG (J2590) As Ordered ONE (13:37)
[2020-11-08] MEDS ORDERED: KETOROLAC 30 MG/ML 1ML VIAL As Ordered ONE (13:38)
[2020-11-08] MEDS: KETOROLAC 30 MG/ML 1ML VIAL IV SCH ×2 (13:39→18:41)
[2020-11-08] MEDS ORDERED: diphenhydrAMINE 50MG/ML VIAL (J1200) IV PRN (14:00)
[2020-11-08] MEDS ORDERED: NALOXONE INJ 0.4MG/1ML VIAL (J2310 PER 1MG) IV PRN ×2 (14:00)
[2020-11-08] MEDS ORDERED: NALBUPHINE HCL 10 MG/ML AMP (J2300) IV PRN (14:00)
[2020-11-08] MEDS: DOCUSATE SODIUM 100MG CAPSULE PO SCH (20:04)
[2020-11-09] MEDS: KETOROLAC 30 MG/ML 1ML VIAL IV SCH ×2 (00:59→06:37)
[2020-11-09 02:00] VITALS: BP 132/66
[2020-11-09] MEDS: LR 1,000 ML IV SCH (05:15)
[2020-11-09 06:00] VITALS: BP 118/63
[2020-11-09 06:36] LABS: HEMATOCRIT 32.8 % (36.0-47.0); HEMOGLOBIN 10.6 g/dl (12.0-15.5); MEAN CORPUSCULAR HGB CONC 32.3 g/dl (32.0-36.5); MEAN CORPUSCULAR VOLUME 89.9 fl (80.0-96.0); PLATELET COUNT, AUTOMATED 178 10^3/uL (150-450); RED BLOOD COUNT 3.65 10^6/uL (4.00-5.40); WHITE BLOOD COUNT 9.4 10^3/uL (4.0-10.0)
[2020-11-09] MEDS: DOCUSATE SODIUM 100MG CAPSULE PO SCH (09:00)
[2020-11-09] MEDS ORDERED: PRENATAL VITAMINS CHEWABLE TABLET PO SCH (09:00)
[2020-11-09 09:57] VITALS: BP 122/64
[2020-11-09] MEDS ORDERED: IBUP80TA PO (13:02)
--- NOTE | 2020-11-09 13:05 | OBDS ---
[facility] Obstetrical Discharge Sum. Obstetrical Discharge Summary Postal Delivery Officer/Provider: Carlos Sage DO Date: Nov 09, 2020 : 4 Term: 3 Pre-term: 0 Abortions: 1 Livin Rh: Negative Infant Sex: Female Anesthesia: Regional Anesthesia A/P, Post Course List any complications Admission diagnosis: Term for elective repeat c/s and tubal. Discharge diagnosis: Same Condition at Discharge: [stable ] Discharge Instructions: [see form] Activity: [as tolerated] Diet: [regular] Medications: [See list] Follow-up: [2 weeks] Other: Carlos Sage DO Nov 09, 2020 13:05
--- NOTE | 2020-11-09 13:45 | RO ---
OPERATIVE NOTE DATE OF OPERATION: 11/07/2020 Victor Manuel is a 25-year-old female, 3, para 2,0,0,2 with history of two prior sections, is being admitted at term for elective repeat section. The patient also desires permanent tubal sterilization. After consultation with the patient the decision was made to proceed with the above noted procedures. PREOPERATIVE DIAGNOSES: 1. Term , for elective repeat section. 2. Desires permanent tubal sterilization. POSTOPERATIVE DIAGNOSES: 1. Term , for elective repeat section. 2. Desires permanent tubal sterilization. PROCEDURES DONE: 1. Repeat section. 2. Revision of old scar. 3. Bilateral salpingectomies. ANESTHESIA: Spinal. SURGEON: Carlos Sage D.O. [employer] OPERATOR: Antonieta Pond DESCRIPTION OF PROCEDURE: The patient was taken to the operating room where spinal anesthetic was found to be adequate. She was then prepped and draped in the usual sterile fashion in the supine position. At this point with the help of Antonieta Pond, an elliptical incision was made over the old scar. This was carried down to the fascia. The fascia was incised in a midline fashion and carried through laterally. The superior aspect of the fascia was then grasped with Misty clamp, tented off, and dissected off the rectus muscle sharply. The inferior aspect was dissected off in a similar fashion. The rectus muscle was in a midline fashion. Peritoneum identified and peritoneal cavity entered bluntly. Superior and inferior dissection of the peritoneum was then done with good visualization of the bladder. At this point, a Mobius skin retractor was placed. A low transverse uterine incision was made. The infant was delivered in atraumatic fashion. Nose and mouth bulb suctioned. The cord was doubly clamped and cut. The was handed over to the awaiting warmer. Cord blood and cord gas were sent. Placenta removed manually. Uterus cleared of all clot and debris, and the uterine incision was then repaired in two separate layers of #0 Vicryl sutures. All superficial bleeders were coagulated. We then turned our attention to the fallopian tubes where the fimbriated ends were identified. Two large Kellys were placed to secure the entire tube and using the Bovie, the entire tubes were removed. We then suture ligated the mesosalpinx using 3-0 chromic. The opposite side was done in similar fashion. Good hemostasis noted. The pelvis was copiously irrigated with normal saline and suctioned out. Attention turned to the peritoneum, which was closed in a running fashion using 2-0 Vicryl. Fascia closed in two separate segments of #0 Vicryl sutures. All superficial bleeders coagulated and the skin was reapproximated in a subcuticular fashion using 3-0 Vicryl on Bubba, Steri-Strips placed. The patient tolerated the procedure well. She was then transferred to the recovery room in stable condition. cc: [facility]
[2020-11-09] MEDS ORDERED: IBUPROFEN 800 MG TAB PO SCH (15:00)
== END 2020-11-09 17:35 | disposition home or self-care (01) | DRG 540 ==
LOC: M LDO 18:35 → M LDI 22:43 → M OBS 11-08 15:15
PROVIDERS: ADMIT Obstetrics & Gynecology; ATTEND Obstetrics & Gynecology
PROC: 10D00Z1 Extraction of Products of Conception, Low, Open Approach (ICD-10-PCS; principal; 2020-11-07)
PROC: 0UT70ZZ Resection of Bilateral Fallopian Tubes, Open Approach (ICD-10-PCS; 2020-11-07)
DX: O34.211 Maternal care for low transverse scar from previous cesarean delivery (principal); Z30.2 Encounter for sterilization; Z3A.38 38 weeks gestation of pregnancy; Z37.0 Single live birth

== ENCOUNTER 2021-01-16 19:14 | Emergency (ER) | payer OTHER ==
[~2021-01-16] VITALS: Ht 160 cm; Wt 63.6 kg
[2021-01-16] MEDS ORDERED: ONDANSETRON 4 MG ORAL DISINTEGRATING TAB PO ONE (19:30)
[2021-01-16] MEDS ORDERED: PERCOCET 5MG/325MG TAB PO ONE (19:30)
[2021-01-16] MEDS ORDERED: NS 1,000 ML IV ONE (20:10)
[2021-01-16 20:17] LABS: BASO # 0.1 10^3/uL (0.0-0.2); BASO % 0.5 % (0.0-1.0); EOS # 0.5 10^3/uL (0.0-0.5); EOS % 4.1 % (0.0-3.0); HEMATOCRIT 42.4 % (36.0-47.0); HEMOGLOBIN 13.9 g/dl (12.0-15.5); LYMPH # 2.6 10^3/uL (1.5-5.0); LYMPH % 23.2 % (24.0-44.0); MEAN CORPUSCULAR HEMOGLOBIN 28.5 pg (27.0-33.0); MEAN CORPUSCULAR HGB CONC 32.8 g/dl (32.0-36.5); MEAN CORPUSCULAR VOLUME 87.1 fl (80.0-96.0); MONO # 0.7 10^3/uL (0.0-0.8); MONO % 6.1 % (2.0-8.0); NEUTROPHILS # 7.2 10^3/uL (1.5-8.5); NEUTROPHILS % 65.6 % (36.0-66.0); PLATELET COUNT, AUTOMATED 319 10^3/uL (150-450); RED BLOOD COUNT 4.87 10^6/uL (4.00-5.40)
--- NOTE | 2021-01-16 20:26 | REPVR ---
PROCEDURE INFORMATION: Exam: XR Left Tibia and Fibula Exam date and time: 01/16/2021 8:04 PM Age: 25 years old Clinical indication: Pain; Lower leg; Left; Additional info: Swollen, fall TECHNIQUE: Imaging protocol: XR Left tibia and fibula. Views: 2 views. COMPARISON: CR Ankle, complete LEFT 01/16/2021 7:40:03 PM FINDINGS: Bones/joints: There is an acute, comminuted, displaced fracture of the left lateral malleolus. There is also an acute displaced fracture of the left posterior malleolus. There is a posterior subluxation of the talus with respect to the distal tibia at the left tibiotalar joint. No other fractures are seen. The left knee joint is intact. No left knee joint effusion is noted. The joint spaces and alignment of the left knee are maintained. Soft tissues: There is soft tissue swelling around the left ankle. IMPRESSION: 1. Acute displaced fracture of the left posterior malleolus. 2. Acute, comminuted, displaced fracture of the left lateral malleolus. 3. Posterior subluxation of the talus with respect to the distal tibia at the left tibiotalar joint. Electronically signed by: Pepito Bonds On 01/16/2021 20:26:31 PM
--- NOTE | 2021-01-16 20:26 | REPVR ---
PROCEDURE INFORMATION: Exam: XR Left Ankle Exam date and time: 01/16/2021 8:04 PM Age: 25 years old Clinical indication: Pain; Ankle; Left; Additional info: Fall, deformity TECHNIQUE: Imaging protocol: XR Left ankle. Views: 3 or more views. COMPARISON: CR Tibia, Fibula lower leg LEFT 01/16/2021 7:51:10 PM FINDINGS: Bones/joints: There is an acute, comminuted, displaced fracture of the left lateral malleolus. There is also an acute displaced fracture of the left posterior malleolus. There is a posterolateral subluxation of the talus with respect to the distal tibia at the left tibiotalar joint and asymmetric widening of the medial aspect of the left ankle mortise. No other fractures are seen. Soft tissues: There is soft tissue swelling around the left ankle. IMPRESSION: 1. Acute displaced fracture of the left posterior malleolus. 2. Acute, comminuted, displaced fracture of the left lateral malleolus. 3. Posterolateral subluxation of the talus with respect to the distal tibia at the left tibiotalar joint and asymmetric widening of the medial aspect of the left ankle mortise. Electronically signed by: Pepito Bonds On 01/16/2021 20:26:22 PM
[2021-01-16] MEDS ORDERED: NS 1,000 ML IV SCH (20:29)
[2021-01-16] MEDS ORDERED: propofoL 200 MG/20 ML VIAL IV ONE ×2 (20:30→21:05)
[2021-01-16] MEDS ORDERED: fentaNYL 100 MCG/2 ML INJECTION (J3010) IV ONE ×2 (20:30→21:05)
[2021-01-16 20:53] LABS: ALBUMIN 3.9 GM/DL (3.2-5.2); ALT/SGPT 18 U/L (12-78); BILIRUBIN,DIRECT < 0.1 MG/DL (0.0-0.2); BILIRUBIN,TOTAL 0.2 MG/DL (0.2-1.0); BLOOD UREA NITROGEN 17 MG/DL (7-18); CALCIUM LEVEL 8.6 MG/DL (8.5-10.1); CARBON DIOXIDE LEVEL 32 MEQ/L (21-32); CHLORIDE LEVEL 106 MEQ/L (98-107); CREATININE FOR GFR 0.87 MG/DL (0.55-1.30); GLOMERULAR FILTRATION RATE > 60.0 (>60); GLUCOSE, FASTING 149 MG/DL (70-100); POTASSIUM SERUM 3.9 MEQ/L (3.5-5.1); SODIUM LEVEL 140 MEQ/L (136-145); TOTAL PROTEIN 7.4 GM/DL (6.4-8.2)
--- NOTE | 2021-01-16 21:16 | ED PDOC ---
Post-Departure Follow-Up ED Attending Note I was asked by Dr. Jackson to provide procedural sedation for reduction of patients ankle fracture. I met with patient to discuss Orthopaedics recommendations and risks, benefits and alternatives thereof. Patient verbalized desire to proceed with ED procedural sedation. She provided written consent. Dr. Jackson saw patient and discussed reduction with patient. Patient underwent successful procedural sedation performed by myself and re duction/splinting performed by Dr. Jackson. She tolerated this well. Dr. Jackson has recommended she may return home, nonweight bearing to see him in office later this week. Patient agrees with plan. POP PHILIP MD Jan 16, 2021 21:16
[2021-01-16] MEDS ORDERED: PERC5TAB12 PO (21:23)
[2021-01-16] MEDS ORDERED: OXYCODONE/APAP 5MG/325MG(BULK FOR ED) 1 TABLET PO ONE (21:25)
--- NOTE | 2021-01-16 22:09 | REPVR ---
PROCEDURE INFORMATION: Exam: CT Left Lower Extremity Without Contrast, Ankle Exam date and time: 01/16/2021 9:26 PM Age: 25 years old Clinical indication: Condition or disease; Post reduction TECHNIQUE: Imaging protocol: CT of the Left lower extremity without contrast was performed. Exam focused on the ankle. Radiation optimization: All CT scans at this facility use at least one of these dose optimization techniques: automated exposure control; mA and/or kV adjustment per patient size (includes targeted exams where dose is matched to clinical indication); or iterative reconstruction. COMPARISON: 1. XA Ankle, complete LEFT 01/16/2021 8:53 PM 2. CR Ankle, complete LEFT 01/16/2021 7:40:03 PM FINDINGS: Bones/joints: There is an acute fracture of the left posterior malleolus that extends into the posterior portion of the medial malleolus in improved alignment compared to the prior left ankle x-rays on 01/16/2021 7:40:03 PM and without significant displacement. There is also an acute fracture of the left distal fibular metaphysis in improved alignment compared to the prior left ankle x-rays on 01/16/2021 7:40:03 PM and without significant displacement. There is in avulsion fracture involving the left anterior tibiotalar ligament, with a linear fragment of bone between the medial malleolus and talus. An avulsion fracture involving the left anterior inferior tibiofibular ligament is also noted. There has been a successful tibiotalar reduction the since the prior left ankle x-rays on 01/16/2021 7:40:03 PM. There is a 2 mm loose bony fragment in the posterior aspect of the left tibiotalar joint (image 45 of the sagittal series 204). There is a well-corticated accessory ossicle medial to the navicular, which represents an os navicularis. Soft tissues: There is soft tissue swelling and thickening involving the left flexor retinaculum. There is soft tissue swelling and bruising around the left ankle, predominantly anteriorly and laterally. No drainable soft tissue fluid collection is noted. There are punctate foci of gas in the soft tissues along the anterior aspect of the left ankle. IMPRESSION: 1. Acute fracture of the left posterior malleolus that extends into the posterior portion of the medial malleolus in improved alignment compared to the prior left ankle x-rays on 01/16/2021 7:40:03 PM and without significant displacement. 2. Acute fracture of the left distal fibular metaphysis in improved alignment compared to the prior left ankle x-rays on 01/16/2021 7:40:03 PM and without significant displacement. 3. Acute avulsion fracture involving the left anterior tibiotalar ligament. 4. Acute avulsion fracture involving the left anterior inferior tibiofibular ligament. 5. 2 mm loose bony fragment in the posterior aspect of the left tibiotalar joint. 6. Status post successful left tibiotalar joint reduction since the prior left ankle x-rays on 01/16/2021 7:40:03 PM. Electronically signed by: Pepito Bonds On 01/16/2021 22:09:46 PM
[2021-01-16 22:10] VITALS: BP 124/89
--- NOTE | 2021-01-17 07:36 | CR ---
CONSULTATION DATE: 01/16/2021 CHIEF COMPLAINT: Left ankle fracture dislocation. HISTORY OF PRESENT ILLNESS: This 25-year-old female had a slip and fall getting out of the vehicle today at some point during the early afternoon. X-rays revealed a fracture dislocation of the left ankle. No prior pain or problems with the ankle. No loss of consciousness or head injury. PAST MEDICAL HISTORY: None. MEDICATIONS: None. ALLERGIES: Amoxicillin, Cefzil, Bactrim and Augmentin. PAST SURGICAL HISTORY: Three C-sections. SOCIAL HISTORY: She works for [employer]. She is a nonsmoker. PHYSICAL EXAMINATION: She is a well-appearing 25-year-old female. She is alert and oriented x3. Obvious deformity of the left lower extremity. No pain of the knee. Compartment is soft. She is wiggling her toes. Normal sensation of the dorsal and plantar aspect of the foot. The foot is warm and well-perfused. Strong dorsalis pedis pulse. RADIOGRAPHS: Radiographs reviewed, AP, lateral and oblique of the left ankle. This shows a fracture dislocation of the left ankle with likely small posterior malleolus fracture and transverse just distal to the joint line distal fibular fracture. The talus is __ posteriorly. ASSESSMENT AND PLAN: This 25-year-old female is neurovascularly intact with left ankle fracture dislocation. I recommend closed reduction and casting. I performed that today. I placed a well-padded three sided Plaster of Vanesa splint, three sided molding. I will obtain a CT scan tonight and will have her follow-up early in the office and nonweightbearing with crutches and elevation, and early follow-up with plan for surgery at some point within the next two weeks based on swelling. PROCEDURE NOTE: I discussed the pros and cons, risks and benefits of going ahead with a left ankle closed reduction and casting. The risks include but are not limited to pain, weakness, stiffness, damage to surrounding structures, neurovascular injury, failure to achieve or maintain closed reduction. She wished to go ahead. The patient consented for that. I marked the left lower extremity. Pre-procedure time-out was performed to confirm the site, the patient and the procedure. Dr. Garcia, the ER physician crop pest control specialist performed conscious sedation with Propofol. I flexed the knee up to 90 degrees as well as direct manipulation of the ankle to reduce the fracture. I placed a below knee well-padded three sided Plaster of Vanesa splint with the foot slightly plantar flexed as well as molding and aligning the lateral malleolus and just proximal anteromedially to the ankle joint. I allowed this to fully harden. I took AP and lateral radiographs with mini C-arm and this confirmed appropriate reduction. The patient was awoken up from her sedation, neurovascular status checked. She is wiggling her toes and has normal sensation, the foot is warm and well-perfused. Will obtain a CT scan afterwards and she will follow-up in the office within the week ideally.
--- NOTE | 2021-01-17 08:01 | REP ---
INDICATION: reduction films COMPARISON: 01/16/2021 at 19:40 TECHNIQUE: Intraoperative fluoroscopic imaging using portable C-arm technique. FINDINGS: Images demonstrate the patient to be status post closed reduction for ankle fracture/dislocation. Total fluoroscopic time 12 seconds. IMPRESSION: Satisfactory closed reduction. <Electronically signed by Diogenes Bay > 01/17/21 [id number]
== END 2021-01-16 22:31 | disposition home or self-care (01) ==
LOC: M ED 19:14
DX: S82.62XA Displaced fracture of lateral malleolus of left fibula, initial encounter for closed fracture (principal); S93.05XA Dislocation of left ankle joint, initial encounter; W00.0XXA Fall on same level due to ice and snow, initial encounter; Y92.018 Other place in single-family (private) house as the place of occurrence of the external cause; Z88.0 Allergy status to penicillin; Z88.1 Allergy status to other antibiotic agents; Z88.2 Allergy status to sulfonamides; Z88.5 Allergy status to narcotic agent; Z88.8 Allergy status to other drugs, medicaments and biological substances
CPT/HCPCS: 27810; 73590; 73610; 73700; 80048; 80076; 84702; 85025; 93041; 94760; 96360; 99152; 99153; 99285; J3010; Q0162

== ENCOUNTER → 2021-01-19 | Outpatient (CLI) | payer OTHER ==
[~2021-01-19] MED LIST changes: +ACET-683 PO; +PERC5TAB12 PO
--- NOTE | 2021-01-22 09:22 | REP ---
INDICATION: F/U FX. COMPARISON: January 16, 2021.. TECHNIQUE: AP and lateral views. X-rays in plaster. FINDINGS: AP and lateral views demonstrate ankle reduction. Posterior tibial fracture alignment is improved. An obliquely oriented distal fibular fracture is seen nondisplaced. IMPRESSION: Postreduction views as above. X-rays in plaster. This obscures fine bone detail. <Electronically signed by Jonah Harris > 01/22/21 0917
== END ==
LOC: M SOG 09:40
PROVIDERS: ATTEND Orthopaedic Surgery Sports Medicine
DX: S82.842A Displaced bimalleolar fracture of left lower leg, initial encounter for closed fracture (principal); W18.30XA Fall on same level, unspecified, initial encounter; Y92.009 Unspecified place in unspecified non-institutional (private) residence as the place of occurrence of the external cause

== ENCOUNTER → 2021-01-19 | Outpatient (CLI) | payer OTHER | LOC: M LABSMTC 14:18 | PROVIDERS: ATTEND Anesthesiology | DX: Z01.812 Encounter for preprocedural laboratory examination (principal); Z20.822 Contact with and (suspected) exposure to COVID-19 ==

== ENCOUNTER 2021-01-22 15:38 | Day surgery (SDC) | payer OTHER ==
[~2021-01-22] VITALS: Ht 160 cm; Wt 64.9 kg
[~2021-01-22 15:38] MED LIST changes: -ACET-683 PO; +LIDOCAINE 2% 100MG/5ML SDV (FOR ANES.) As Ordered ONE; +MIDAZOLAM INJ 2MG/2ML VIAL (J2250 PER 1MG) As Ordered ONE; +MIDAZOLAM INJ 2MG/2ML VIAL (J2250 PER 1MG) IV PRN; +fentaNYL 100 MCG/2 ML INJECTION (J3010) IV PRN; +fentaNYL 250 MCG/5 ML INJECTION (J3010) As Ordered ONE; +propofoL 200 MG/20 ML VIAL As Ordered ONE
[2021-01-22] MEDS ORDERED: ACET-683 PO (16:14)
[2021-01-22] MEDS ORDERED: LR 1,000 ML IV ONE (17:10)
[2021-01-22] MEDS ORDERED: BUPIVACAINE HCL 0.5% 30 ML VIAL XX ONE (17:10)
[2021-01-22] MEDS ORDERED: dexameTHASONE 10MG/1ML VIAL PRES.FREE (J1100 PER 1MG) XX ONE (17:10)
[2021-01-22] MEDS ORDERED: EPINEPHrine INJ 1 MG/ML 1ML AMP XX ONE (17:10)
[2021-01-22] MEDS ORDERED: CLINDAMYCIN 900 MG/50 ML PREMIX BAG As Ordered ONE (18:00)
[2021-01-22] MEDS ORDERED: ROCURONIUM BROMIDE 50 MG/5 ML VIAL As Ordered ONE (18:13)
[2021-01-22] MEDS ORDERED: KETOROLAC 60MG 2ML VIAL As Ordered ONE (19:41)
[2021-01-22] MEDS ORDERED: ONDANSETRON 4MG/2ML VIAL As Ordered ONE (19:41)
[2021-01-22] MEDS ORDERED: METOCLOPRAMIDE INJ 10MG/2ML VIAL (J2765 PER 1) As Ordered ONE ×2 (19:41→23:12)
[2021-01-22] MEDS ORDERED: dexameTHASONE 4 MG/ML 1ML VIAL (J1100 PER 1MG) As Ordered ONE (19:41)
[2021-01-22] MEDS ORDERED: ACETAMINOPHEN 1000MG 100ML IV BTL (OFIRMEV) (J0131 PER 10MG) As Ordered ONE (19:43)
[2021-01-22] MEDS ORDERED: fentaNYL 100 MCG/2 ML INJECTION (J3010) As Ordered ONE ×2 (20:49→21:17)
[2021-01-22] MEDS ORDERED: SUGAMMADEX SODIUM 500 MG/5 ML VIAL (BRIDION) As Ordered ONE (21:12)
[2021-01-22] MEDS ORDERED: ONDANSETRON 4MG/2ML VIAL IV PRN (22:05)
[2021-01-22] MEDS ORDERED: oxyCODONE 5MG TAB PO PRN (22:05)
[2021-01-22] MEDS ORDERED: KETOROLAC 30 MG/ML 1ML VIAL IV PRN (22:05)
[2021-01-22] MEDS ORDERED: fentaNYL 100 MCG/2 ML INJECTION (J3010) IV PRN (22:05)
[2021-01-22] MEDS ORDERED: LR 1,000 ML IV SCH (22:05)
[2021-01-22] MEDS ORDERED: METOCLOPRAMIDE INJ 10MG/2ML VIAL (J2765 PER 1) IV SCH (23:15)
[2021-01-23 00:07] VITALS: BP 118/70
--- NOTE | 2021-01-23 07:55 | REP ---
INDICATION: ORIF LEFT ANKLE. COMPARISON: Comparison ankle series January 16, 2021.. TECHNIQUE: 14 views. 89.5 seconds of fluoroscopy time is reported. FINDINGS: A sequence of 14 last image hold fluoroscopically obtained spot radiographs of the ankle document open reduction internal fixation of the distal tibia and fibula. IMPRESSION: Procedural imaging. <Electronically signed by Jonah Harris > 01/23/21 0750
--- NOTE | 2021-01-23 10:13 | RO ---
OPERATIVE NOTE DATE OF OPERATION: 01/22/2021 TIME: 7 p.m. PREOPERATIVE DIAGNOSIS: Left ankle fracture. POSTOPERATIVE DIAGNOSIS: Left ankle fracture. PROCEDURE: Left ankle open reduction and internal fixation. SURGEON: Rd Garcia MD VACUUM TESTER CANS: Denilson Painter MD SUPERVISING ATTENDING: Rd Garcia MD FINDINGS: The patient had a fractured posterior malleolus and a distal fibular spiral fracture, Casanova B. INDICATIONS: This is a 25-year-old female who sustained a ground-level fall approximately one week prior on the January,. The patient then presented to the [facility] where she was treated for her orthopedic injury. Orthopedics was consulted and Dr. Jackson, orthopedic surgeon, reduced the fracture and splinted her in the L and U splint. She was then indicated for the aforementioned left ankle open reduction and internal fixation on the January,. ANESTHESIA: GETA. TOURNIQUET TIME: 120 minutes. ESTIMATED BLOOD LOSS: 50 mL. IV ANTIBIOTICS: 900 mg of clindamycin. IV FLUIDS: Please see anesthesia report. IMPLANTS: Synthes. CULTURES: None. SPECIMENS: None. DESCRIPTION OF PROCEDURE: The patient was met in the preoperative holding area where the patient's operative extremity was signed, the patient's consent was confirmed to be correct, and the patient's identity was confirmed to be correct. The patient was then transported to the operating theater where she was placed prone. Safety straps secured the patient to the bed. All bony prominences were well padded. The contralateral lower extremity had an SCD placed. A timeout was called which confirmed the correct patient, correct operative extremity and correct consent. All staff was in agreement. The patient was then draped in the usual sterile fashion. We began the procedure by obtaining fluoroscopic AP, mortise and lateral views. (cut out) We then proceeded with a modified posteromedial incision adjacent and just medial to the medial edge of the Achilles tendon. We incised the skin sharply. We made our way to the tarsal tunnel which contained a 2 mm posterior tibial artery and flexor hallucis longus. The tarsal tunnel fascia was incised. We identified the tibial nerve which was then protected throughout the case as well as the posterior tibial artery which was protected throughout the case. We then incised the fascia and the FHL and reflected this laterally. This gave us great exposure of the posterior malleolus. At this point in time, we then find the posteromedial malleolar fracture. We booked open the fracture enough to clean the fracture to include hematoma and clot. We then provisionally reduced the fracture using (cut out) and obtained fluoroscopic views, demonstrating that we were satisfied with the reduced malleolar fracture with provisional reduction. We then placed one 3.5 mm cortical screw through the posterior malleolus using a lag by technique. Once this was secured, we were satisfied with the posterior malleolar reduction. We obtained fluoroscopic AP and lateral views, demonstrating that fracture reduction was reduced and implant appropriate. We then closed the dermal layer using 2-0 Vicryl and closed the epidural layer using a running 3-0 nylon stitch. We then turned our attention to the distal lateral fibular fracture. We obtained a provisional reduction and held this with a lobster claw. Due to the comminution, we were unable to obtain a lag fixation and absolute stability through the fracture. However, we were satisfied with the episcopal of our fibular length and otherwise had good alignment. After incising the skin sharply, we used a scalpel and used meticulous dissection down to the distal fibular fracture. We then elevated the periosteum in order to place our lateral distal fibular locking plate in position. This was secured provisionally using thin wires and the plate was held to the distal lateral fibula using a lobster claw. We secured the lateral fibular plate distally using a cortical screw and two distal interlocking screws. We then obtained AP and lateral views of the distal fibular plate to ensure that we were satisfied with the length of the plate as well as the fracture provisional reduction. We then placed two cortical screws within the shaft proximal to the fracture and then placed one 2.7 mm screw in the most proximal hole. We then turned our attention again to the distal aspect of the plate, placed an additional locking screw and then placed our initial cortical screw with a locking screw. At this point in time, we had achieved fixation of our lateral distal fibular fracture as well as the posterior malleolus fracture. We then stressed the ankle using a dorsiflexion external rotation test as well as a Cotton exam. There was no widening of the syndesmosis and no lateral translation of the talus. Hence, our syndesmosis was secure. We then copiously irrigated all the surgical incisions, closed the lateral fibular incision which measured 3 inches in length using 2-0 Vicryl for the dermal layer, 2-0 Vicryl for the periosteum which covered the distal aspect of the plate and 3-0 running nylon suture for the epidermis or the lateral incision. We then placed Xeroforms about all the surgical incisions followed by 4x4s, Webril and placed the patient's left leg in a well-padded L and U splint. The patient was extubated without complication and transported to the postanesthesia care unit. The patient will be nonweightbearing to the left lower extremity for six weeks. Her will nut picker her postoperative pain medication as well as her DVT chemoprophylaxis medication which included aspirin at the local [facility] on [address]. Her postoperative pain medication included Percocet, aspirin, Zofran, Colace. The patient will follow up in the [facility] orthopedic clinic in two weeks for a postoperative wound check. I will be able to follow this patient on the 07 of February for the postoperative wound check. The L and U splint will be replaced with Cam boot and she will at that point be able to proceed with range of motion and physical therapy of the left ankle. The patient had her questions answered postoperatively and she will follow the left ankle open reduction and internal fixation routine protocol following this case.
== END 2021-01-23 00:07 | disposition home or self-care (01) ==
LOC: M SDC 15:38
PROVIDERS: ATTEND Orthopaedic Surgery
DX: S82.442A Displaced spiral fracture of shaft of left fibula, initial encounter for closed fracture (principal); W00.9XXA Unspecified fall due to ice and snow, initial encounter; Y92.89 Other specified places as the place of occurrence of the external cause; Y93.9 Activity, unspecified; Y99.9 Unspecified external cause status; F41.9 Anxiety disorder, unspecified; F32.9 Major depressive disorder, single episode, unspecified; G43.909 Migraine, unspecified, not intractable, without status migrainosus; Z88.0 Allergy status to penicillin; Z88.2 Allergy status to sulfonamides; Z88.5 Allergy status to narcotic agent; Z88.1 Allergy status to other antibiotic agents; Z91.81 History of falling
CPT/HCPCS: 27792; 64445; 76000; C1713; J0131; J1100; J1885; J2250; J2405; J2765; J3010

== ENCOUNTER → 2021-02-06 | Outpatient (CLI) | payer OTHER ==
[~2021-02-06] MED LIST changes: +ACET-683 PO; -LIDOCAINE 2% 100MG/5ML SDV (FOR ANES.) As Ordered ONE; -MIDAZOLAM INJ 2MG/2ML VIAL (J2250 PER 1MG) As Ordered ONE; -MIDAZOLAM INJ 2MG/2ML VIAL (J2250 PER 1MG) IV PRN; -fentaNYL 100 MCG/2 ML INJECTION (J3010) IV PRN; -fentaNYL 250 MCG/5 ML INJECTION (J3010) As Ordered ONE; -propofoL 200 MG/20 ML VIAL As Ordered ONE
--- NOTE | 2021-02-06 16:01 | REP ---
INDICATION: F/U FX. COMPARISON: 01/16/2021. TECHNIQUE: There are two views, AP and lateral projections. FINDINGS: The fracture of the distal fibula has a been stabilized with a compression plate in satisfactory position and alignment. The fracture of the posterior malleolus is been reduced with an orthopedic screw is maintained in satisfactory position and alignment. The previous dislocation has been satisfactorily reduced in satisfactory position and alignment. The mortise is symmetric. IMPRESSION: Internal fixation with satisfactory reduction of the fractures and dislocation <Electronically signed by Roland Casanova > 02/06/21 [id number]
== END ==
LOC: M SOG 11:31
PROVIDERS: ATTEND Orthopaedic Surgery Sports Medicine
DX: S82.842A Displaced bimalleolar fracture of left lower leg, initial encounter for closed fracture (principal); X58.XXXA Exposure to other specified factors, initial encounter; Y92.9 Unspecified place or not applicable

== ENCOUNTER → 2021-03-01 | Outpatient (CLI) | payer OTHER ==
--- NOTE | 2021-03-02 06:20 | REP ---
INDICATION: F/U FX. COMPARISON: 02/06/2021 TECHNIQUE: AP, lateral, bilateral oblique views of the left ankle FINDINGS: Patient is status post open reduction and fixation for distal fibular and medial malleolar fractures. Small residual avulsion fracture fragment at the medial malleolus is suggested along with overlying soft tissue swelling. Satisfactory stable alignment to the osseous structures noted. IMPRESSION: Stable examination. <Electronically signed by Diogenes Bay > 03/02/21 [id number]
== END ==
LOC: M SOG 11:37
PROVIDERS: ATTEND Student in an Organized Health Care Education/Training Program
DX: S82.842D Displaced bimalleolar fracture of left lower leg, subsequent encounter for closed fracture with routine healing (principal)

== ENCOUNTER 2021-03-15 13:13 | Outpatient (RCR) | payer OTHER | END 2021-03-16 | LOC: M PT 13:13 | PROVIDERS: ATTEND Orthopaedic Surgery | DX: S82.842D Displaced bimalleolar fracture of left lower leg, subsequent encounter for closed fracture with routine healing (principal); X58.XXXD Exposure to other specified factors, subsequent encounter ==

== ENCOUNTER 2021-04-06 18:26 | Emergency (ER) | payer OTHER ==
[~2021-04-06] VITALS: Ht 160 cm; Wt 78.0 kg
--- NOTE | 2021-04-07 00:29 | REPVR ---
PROCEDURE INFORMATION: Exam: US Duplex Right Lower Extremity Veins, Limited Exam date and time: 04/06/2021 11:42 PM Age: 25 years old Clinical indication: Swelling (edema) of limb; Lower extremity, right; Additional info: Swelling/tingling TECHNIQUE: Imaging protocol: Real-time Duplex ultrasound of the Right Lower Extremity with 2-D pantoja scale, color Doppler flow and spectral waveform analysis with image documentation. Limited exam was focused on the right lower extremity veins. COMPARISON: No relevant prior studies available. FINDINGS: Right deep veins: Unremarkable. The common femoral, femoral and popliteal veins are patent without thrombus. Normal Doppler waveforms. Normal compressibility and/or augmentation response. Right superficial veins: Unremarkable. Saphenofemoral junction is patent without thrombus. Soft tissues: Unremarkable. IMPRESSION: No sonographic evidence of deep vein thrombosis. Electronically signed by: Aron Al On 04/07/2021 00:29:28 AM
[2021-04-07 01:09] VITALS: BP 120/80
== END 2021-04-07 01:16 | disposition home or self-care (01) ==
LOC: M ED 18:26
DX: S86.911A Strain of unspecified muscle(s) and tendon(s) at lower leg level, right leg, initial encounter (principal); X50.1XXA Overexertion from prolonged static or awkward postures, initial encounter; Y92.9 Unspecified place or not applicable; Y93.9 Activity, unspecified; Y99.9 Unspecified external cause status; Z88.0 Allergy status to penicillin; Z88.1 Allergy status to other antibiotic agents; Z88.2 Allergy status to sulfonamides; Z88.8 Allergy status to other drugs, medicaments and biological substances; Z88.6 Allergy status to analgesic agent

== ENCOUNTER → 2021-04-12 | Outpatient (CLI) | payer OTHER ==
--- NOTE | 2021-04-12 15:16 | REP ---
INDICATION: F/U FX. COMPARISON: 03/01/2021 TECHNIQUE: AP, lateral, bilateral oblique views of the left ankle FINDINGS: Stable appearance to left ankle. Orthopedic hardware in satisfactory stable position. Overlying soft tissue swelling noted. No new acute process identified. IMPRESSION: Stable appearance to the left ankle. <Electronically signed by Diogenes Bay > 04/12/21 1052
== END ==
LOC: M SOG 14:32
PROVIDERS: ATTEND Orthopaedic Surgery
DX: S82.842D Displaced bimalleolar fracture of left lower leg, subsequent encounter for closed fracture with routine healing (principal)

== ENCOUNTER 2021-04-13 13:15 | Outpatient (RCR) | payer OTHER | END 2021-04-16 | LOC: M PT 13:15 | PROVIDERS: ATTEND Orthopaedic Surgery | DX: Z47.89 Encounter for other orthopedic aftercare (principal); S82.842D Displaced bimalleolar fracture of left lower leg, subsequent encounter for closed fracture with routine healing ==

== ENCOUNTER → 2021-08-22 | Outpatient (REF) | payer OTHER | LOC: M WUC 15:28 | PROVIDERS: ATTEND Physician Assistant | DX: J06.9 Acute upper respiratory infection, unspecified (principal) ==

== ENCOUNTER → 2021-11-19 | Outpatient (REF) | payer OTHER | LOC: M LAB REF 16:48 | PROVIDERS: ATTEND Physician Assistant Medical | DX: R05.9 Cough, unspecified (principal) ==

== ENCOUNTER → 2022-03-07 | Outpatient (REF) | LOC: M LABSMTC 09:04 | PROVIDERS: ATTEND Family Medicine | DX: Z20.822 Contact with and (suspected) exposure to COVID-19 (principal) ==

== ENCOUNTER → 2022-03-11 | Outpatient (REF) | LOC: M LABSMTC 09:37 | PROVIDERS: ATTEND Family Medicine | DX: Z11.52 Encounter for screening for COVID-19 (principal) ==

== ENCOUNTER → 2022-04-29 | Outpatient (CLI) | payer OTHER ==
[~2022-04-29] MED LIST changes: +GASTROGRAFIN SOLUTION 30ML (Q9963) As Ordered ONE; +ISOVUE-370 76% 100ML VIAL As Ordered ONE
== END ==
LOC: M RAD 10:34
PROVIDERS: ATTEND Physician Assistant Medical
DX: R10.31 Right lower quadrant pain (principal)
CPT/HCPCS: 74177; Q9963; Q9967

== ENCOUNTER → 2022-06-05 | Outpatient (REF) ==
[~2022-06-05] MED LIST changes: -GASTROGRAFIN SOLUTION 30ML (Q9963) As Ordered ONE; -ISOVUE-370 76% 100ML VIAL As Ordered ONE
== END ==
LOC: M LABSMTC 09:39
PROVIDERS: ATTEND Family Medicine
DX: Z11.52 Encounter for screening for COVID-19 (principal)

== ENCOUNTER → 2022-06-07 | Outpatient (REF) | LOC: M EMP 09:32 | PROVIDERS: ATTEND Family Medicine | DX: Z20.822 Contact with and (suspected) exposure to COVID-19 (principal) ==

== ENCOUNTER → 2022-06-30 | Outpatient (REF) | LOC: M LABSMTC 09:42 | PROVIDERS: ATTEND Pediatrics | DX: Z20.822 Contact with and (suspected) exposure to COVID-19 (principal) ==

== ENCOUNTER → 2022-08-07 | Outpatient (REF) | payer OTHER ==
[2022-08-07 13:22] LABS: RSV AMPLIFICATION NEGATIVE (NEGATIVE)
== END ==
LOC: M LAB REF 12:10
PROVIDERS: ATTEND Physician Assistant
DX: B34.9 Viral infection, unspecified (principal)

== ENCOUNTER → 2022-12-05 | Outpatient (CLI) | payer OTHER | LOC: M LAB 13:37 | PROVIDERS: ATTEND Physical Medicine & Rehabilitation | DX: Z32.00 Encounter for pregnancy test, result unknown (principal) ==

== ENCOUNTER → 2022-12-10 | Outpatient (REF) | LOC: M EMP 09:45 | PROVIDERS: ATTEND Family Medicine | DX: Z11.52 Encounter for screening for COVID-19 (principal) ==

== ENCOUNTER → 2023-10-17 | Outpatient (REF) ==
[~2023-10-17] MED LIST changes: +LIDO15SO PO; -LIDO2SOL17 PO; +MECL-209 PO; -MECL1TAB31 PO
== END ==
LOC: M EMP 10:34
PROVIDERS: ATTEND Family Medicine
DX: Z11.52 Encounter for screening for COVID-19 (principal)

== ENCOUNTER → 2023-10-31 | Outpatient (CLI) | payer OTHER ==
[2023-10-31 09:54] LABS: FOLLICLE STIMULATING HORMONE 8.4 mIU/ML; FREE T4 1.03 NG/DL (0.89-1.76); THYROID STIMULATING HORMONE 1.178 uIU/ML (0.55-4.78)
== END ==
LOC: M LAB 08:45
PROVIDERS: ATTEND Obstetrics & Gynecology
DX: N92.1 Excessive and frequent menstruation with irregular cycle (principal)

== ENCOUNTER → 2023-11-21 | Outpatient (CLI) | payer OTHER | LOC: M RAD 08:47 | PROVIDERS: ATTEND Obstetrics & Gynecology | DX: N92.1 Excessive and frequent menstruation with irregular cycle (principal); R93.41 Abnormal radiologic findings on diagnostic imaging of renal pelvis, ureter, or bladder ==

== ENCOUNTER → 2023-12-18 | Outpatient (REF) | payer OTHER ==
[~2023-12-18] MED LIST changes: +BUSP10TA PO; +SUMA50TA2 PO; +TRAZ-252 PO; +VENL37.598 PO
== END ==
LOC: M LAB REF 11:55
PROVIDERS: ATTEND Physician Assistant
DX: B34.9 Viral infection, unspecified (principal)

== ENCOUNTER 2023-12-31 14:47 | Day surgery (SDC) | payer OTHER ==
[~2023-12-31] VITALS: Ht 160 cm; Wt 89.8 kg
[2023-12-31 15:20] LABS: HEMOGLOBIN 12.9 g/dl (12.0-15.5); MEAN CORPUSCULAR HEMOGLOBIN 27.2 pg (27.0-33.0); MEAN CORPUSCULAR HGB CONC 32.3 g/dl (32.0-36.5); MEAN CORPUSCULAR VOLUME 84.4 fl (80.0-96.0); PLATELET COUNT, AUTOMATED 369 10^3/uL (150-450); RED BLOOD COUNT 4.74 10^6/uL (4.00-5.40); WHITE BLOOD COUNT 10.1 10^3/uL (4.0-10.0)
[2023-12-31] MEDS ORDERED: fentaNYL 100 MCG/2 ML INJECTION As Ordered ONE (17:27)
[2023-12-31] MEDS ORDERED: MIDAZOLAM INJ 2MG/2ML VIAL As Ordered ONE (17:28)
[2023-12-31] MEDS ORDERED: KETOROLAC 60MG 2ML VIAL As Ordered ONE (17:28)
[2023-12-31] MEDS ORDERED: ONDANSETRON 4MG 2ML VIAL As Ordered ONE (17:28)
[2023-12-31] MEDS ORDERED: LIDOCAINE 2% 100MG/5ML SDV (FOR ANES.) As Ordered ONE (17:28)
[2023-12-31] MEDS ORDERED: propofoL 200 MG/20 ML VIAL As Ordered ONE (17:28)
[2023-12-31] MEDS ORDERED: ACETAMINOPHEN 1000MG 100ML IV BAG As Ordered ONE (18:19)
[2023-12-31] MEDS ORDERED: fentaNYL 100 MCG/2 ML INJECTION IV PRN (18:35)
[2023-12-31] MEDS ORDERED: PERCOCET 5MG/325MG TAB PO PRN (18:50)
[2023-12-31] MEDS ORDERED: LR 1,000 ML IV SCH (18:50)
[2023-12-31] MEDS ORDERED: HYDROMORPHONE HCL 0.5 MG/ 0.5 ML SYRINGE IV PRN (18:50)
[2023-12-31] MEDS: PERCOCET 5MG/325MG TAB PO PRN (18:57)
[2023-12-31] MEDS: ONDANSETRON 4MG 2ML VIAL IV PRN (18:57)
[2023-12-31 19:20] VITALS: BP 130/73; TEMP 97.7; O2SAT 97
[2024-01-01] MEDS ORDERED: IBUPROFEN 800 MG TAB PO SCH
== END 2023-12-31 19:44 | disposition home or self-care (01) ==
LOC: M SDC 14:47
PROVIDERS: ATTEND Obstetrics & Gynecology
DX: N92.0 Excessive and frequent menstruation with regular cycle (principal); R51.9 Headache, unspecified; F41.9 Anxiety disorder, unspecified; F32.A Depression, unspecified; Z88.0 Allergy status to penicillin; Z88.2 Allergy status to sulfonamides; Z88.1 Allergy status to other antibiotic agents; Z88.8 Allergy status to other drugs, medicaments and biological substances
CPT/HCPCS: 36415; 58563; 85027; 86850; 86900; 86901; 88305; J0131; J1100; J1885; J2250; J2405; J3010

== ENCOUNTER 2024-03-16 06:02 | Emergency (ER) | payer OTHER ==
[~2024-03-16] VITALS: Ht 160 cm; Wt 93.5 kg
[~2024-03-16 06:02] MED LIST changes: -LIDO15SO PO; +LIDO15SO8 PO
[2024-03-16] MEDS ORDERED: NAPR-837 PO (07:16)
[2024-03-16] MEDS ORDERED: METH-1164 PO (07:16)
[2024-03-16] MEDS: NAPROXEN 250 MG TAB PO ONE (07:28)
[2024-03-16 07:37] VITALS: BP 140/94; TEMP 97.6; O2SAT 99
== END 2024-03-16 07:53 | disposition home or self-care (01) ==
LOC: M ED 06:02
DX: S16.1XXA Strain of muscle, fascia and tendon at neck level, initial encounter (principal); X50.0XXA Overexertion from strenuous movement or load, initial encounter; G40.909 Epilepsy, unspecified, not intractable, without status epilepticus; G43.909 Migraine, unspecified, not intractable, without status migrainosus; F41.9 Anxiety disorder, unspecified; F32.A Depression, unspecified; Z88.0 Allergy status to penicillin; Z88.1 Allergy status to other antibiotic agents; Z88.2 Allergy status to sulfonamides; Z88.5 Allergy status to narcotic agent; Z88.8 Allergy status to other drugs, medicaments and biological substances; Z79.899 Other long term (current) drug therapy; Z79.891 Long term (current) use of opiate analgesic; Y92.9 Unspecified place or not applicable; Y93.89 Activity, other specified; Y99.9 Unspecified external cause status

== ENCOUNTER → 2024-08-04 | Outpatient (REF) ==
[~2024-08-04] MED LIST changes: +METH-1164 PO; +NAPR-837 PO
== END ==
LOC: M EMP 10:22
PROVIDERS: ATTEND Family Medicine
DX: Z11.52 Encounter for screening for COVID-19 (principal)

== ENCOUNTER → 2024-09-27 | Outpatient (REF) | payer OTHER | LOC: M LAB REF 16:21 | PROVIDERS: ATTEND Physician Assistant | DX: J02.9 Acute pharyngitis, unspecified (principal) ==

== ENCOUNTER → 2024-09-27 | Outpatient (REF) | LOC: M EMP 11:42 | PROVIDERS: ATTEND Family Medicine | DX: Z11.52 Encounter for screening for COVID-19 (principal) ==

== ENCOUNTER → 2024-09-27 | Outpatient (REF) | LOC: M EMP 10:56 | PROVIDERS: ATTEND Family Medicine | DX: Z11.52 Encounter for screening for COVID-19 (principal); Z20.828 Contact with and (suspected) exposure to other viral communicable diseases ==

== ENCOUNTER 2024-12-15 16:06 | Emergency (ER) | payer OTHER ==
[~2024-12-15] VITALS: Ht 160 cm; Wt 80.1 kg
[2024-12-15] MEDS ORDERED: LAMO25TA4 PO (16:23)
[2024-12-15] MEDS: KETOROLAC 30 MG/ML 1ML VIAL IV ONE (18:40)
[2024-12-15] MEDS: NS (Normal Saline) 0.9% 1,000 ML IV ONE (18:40)
[2024-12-15] MEDS: METOCLOPRAMIDE INJ 10MG/2ML VIAL IV ONE (18:40)
[2024-12-15] MEDS: diphenhydrAMINE 50MG/ML VIAL IV ONE (18:41)
[2024-12-15 20:13] VITALS: BP 112/75; TEMP 97.6; O2SAT 98
== END 2024-12-15 20:37 | disposition home or self-care (01) ==
LOC: M ED 16:06
DX: G43.909 Migraine, unspecified, not intractable, without status migrainosus (principal); Z88.0 Allergy status to penicillin; Z88.1 Allergy status to other antibiotic agents; Z88.2 Allergy status to sulfonamides; Z88.5 Allergy status to narcotic agent; Z88.8 Allergy status to other drugs, medicaments and biological substances; Z79.1 Long term (current) use of non-steroidal anti-inflammatories (NSAID); Z79.899 Other long term (current) drug therapy
CPT/HCPCS: 70450; 84702; 96361; 96374; 96375; 99284; J1100; J1200; J1885; J2765

== ENCOUNTER 2024-12-18 23:34 | Emergency (ER) | payer OTHER ==
[~2024-12-18] VITALS: Ht 160 cm; Wt 78.6 kg
[~2024-12-18 23:34] MED LIST changes: +LAMO25TA4 PO
[2024-12-19 04:30] LABS: BASO % 0.4 % (0.0-1.0); EOS # 0.2 10^3/uL (0.0-0.5); EOS % 2.5 % (0.0-3.0); HEMATOCRIT 39.1 % (36.0-47.0); HEMOGLOBIN 13.1 g/dl (12.0-15.5); LYMPH # 1.8 10^3/uL (1.5-5.0); MEAN CORPUSCULAR HEMOGLOBIN 28.3 pg (27.0-33.0); MEAN CORPUSCULAR HGB CONC 33.5 g/dl (32.0-36.5); MEAN CORPUSCULAR VOLUME 84.4 fl (80.0-96.0); MONO # 0.7 10^3/uL (0.0-0.8); MONO % 7.4 % (2.0-8.0); NEUTROPHILS # 6.2 10^3/uL (1.5-8.5); NEUTROPHILS % 69.3 % (36.0-66.0); PLATELET COUNT, AUTOMATED 332 10^3/uL (150-450); RED BLOOD COUNT 4.63 10^6/uL (4.00-5.40); WHITE BLOOD COUNT 8.9 10^3/uL (4.0-10.0)
[2024-12-19] MEDS: NS (Normal Saline) 0.9% 1,000 ML IV ONE (04:30)
[2024-12-19] MEDS: ACETAMINOPHEN *IV* 1,000 MG in IV 1 EA IV ONE (04:30)
[2024-12-19] MEDS: diphenhydrAMINE 50MG/ML VIAL IV ONE (04:31)
[2024-12-19] MEDS: KETOROLAC 30 MG/ML 1ML VIAL IV ONE (04:31)
[2024-12-19] MEDS: METOCLOPRAMIDE INJ 10MG/2ML VIAL IV ONE (04:31)
[2024-12-19] MEDS: diazePAM 10MG/2ML SYRINGE IV ONE (04:49)
[2024-12-19 04:51] LABS: BLOOD UREA NITROGEN 11 MG/DL (9-23); CALCIUM LEVEL 9.1 MG/DL (8.5-10.1); CARBON DIOXIDE LEVEL 29 MMOL/L (20-31); CHLORIDE LEVEL 109 MMOL/L (98-107); GLOMERULAR FILTRATION RATE > 60.0 (>60); GLUCOSE, FASTING 112 MG/DL (60-100); POTASSIUM SERUM 3.9 MMOL/L (3.5-5.1); SODIUM LEVEL 147 MMOL/L (136-145)
[2024-12-19] MEDS ORDERED: METH-1165 PO (06:37)
[2024-12-19 07:27] VITALS: BP 98/60; TEMP 96.9; O2SAT 98
== END 2024-12-19 06:53 | disposition home or self-care (01) ==
LOC: M ED 23:34
DX: G43.909 Migraine, unspecified, not intractable, without status migrainosus (principal); G40.909 Epilepsy, unspecified, not intractable, without status epilepticus; F31.9 Bipolar disorder, unspecified; Z88.0 Allergy status to penicillin; Z88.1 Allergy status to other antibiotic agents; Z88.2 Allergy status to sulfonamides; Z88.5 Allergy status to narcotic agent; Z88.8 Allergy status to other drugs, medicaments and biological substances; Z79.1 Long term (current) use of non-steroidal anti-inflammatories (NSAID); Z79.899 Other long term (current) drug therapy
CPT/HCPCS: 70450; 80048; 85025; 96361; 96365; 96375; 99284; J0131; J1200; J1885; J2765; J3360

== ENCOUNTER 2024-12-27 19:13 | Emergency (ER) | payer OTHER ==
[~2024-12-27 19:13] MED LIST changes: +METH-1165 PO
[2024-12-27 19:54] LABS: BASO # 0.1 10^3/uL (0.0-0.2); BASO % 0.5 % (0.0-1.0); EOS # 0.1 10^3/uL (0.0-0.5); EOS % 1.2 % (0.0-3.0); HEMATOCRIT 41.2 % (36.0-47.0); HEMOGLOBIN 13.9 g/dl (12.0-15.5); LYMPH # 1.8 10^3/uL (1.5-5.0); LYMPH % 18.3 % (24.0-44.0); MEAN CORPUSCULAR HEMOGLOBIN 28.8 pg (27.0-33.0); MEAN CORPUSCULAR HGB CONC 33.7 g/dl (32.0-36.5); MEAN CORPUSCULAR VOLUME 85.3 fl (80.0-96.0); MONO # 0.7 10^3/uL (0.0-0.8); MONO % 7.4 % (2.0-8.0); NEUTROPHILS # 7.3 10^3/uL (1.5-8.5); NEUTROPHILS % 72.3 % (36.0-66.0); PLATELET COUNT, AUTOMATED 357 10^3/uL (150-450); RED BLOOD COUNT 4.83 10^6/uL (4.00-5.40); WHITE BLOOD COUNT 10.1 10^3/uL (4.0-10.0)
[2024-12-27] MEDS: diphenhydrAMINE 50MG/ML VIAL IV ONE (20:21)
[2024-12-27] MEDS: METOCLOPRAMIDE INJ 10MG/2ML VIAL IV ONE (20:21)
[2024-12-27] MEDS: NS (Normal Saline) 0.9% 1,000 ML IV ONE (20:22)
[2024-12-27] MEDS: KETOROLAC 30 MG/ML 1ML VIAL IV ONE (20:22)
[2024-12-27 21:32] LABS: BLOOD UREA NITROGEN 6 MG/DL (9-23); CARBON DIOXIDE LEVEL 28 MMOL/L (20-31); CHLORIDE LEVEL 109 MMOL/L (98-107); CREATININE FOR GFR 0.71 MG/DL (0.55-1.30); GLOMERULAR FILTRATION RATE > 60.0 (>60); GLUCOSE, FASTING 100 MG/DL (60-100); POTASSIUM SERUM 3.7 MMOL/L (3.5-5.1); SODIUM LEVEL 145 MMOL/L (136-145)
[2024-12-27 22:30] VITALS: BP 116/76; TEMP 98.1; O2SAT 100
== END 2024-12-27 22:47 | disposition home or self-care (01) ==
LOC: M ED 19:13
DX: G43.909 Migraine, unspecified, not intractable, without status migrainosus (principal); G40.909 Epilepsy, unspecified, not intractable, without status epilepticus; F41.9 Anxiety disorder, unspecified; Z79.899 Other long term (current) drug therapy; Z79.1 Long term (current) use of non-steroidal anti-inflammatories (NSAID)
CPT/HCPCS: 70450; 80048; 83605; 85025; 93041; 94760; 96361; 96374; 96375; 99285; J1200; J1885; J2765

== ENCOUNTER 2025-01-03 17:22 | Emergency (ER) | payer OTHER ==
[~2025-01-03] VITALS: Ht 160 cm; Wt 73.5 kg
[2025-01-03 17:51] VITALS: TEMP 96.7
[2025-01-03 18:39] LABS: BASO % 0.4 % (0.0-1.0); EOS # 0.1 10^3/uL (0.0-0.5); EOS % 1.3 % (0.0-3.0); HEMOGLOBIN 14.3 g/dl (12.0-15.5); LYMPH # 1.9 10^3/uL (1.5-5.0); LYMPH % 20.8 % (24.0-44.0); MEAN CORPUSCULAR HEMOGLOBIN 29.4 pg (27.0-33.0); MEAN CORPUSCULAR HGB CONC 34.9 g/dl (32.0-36.5); MEAN CORPUSCULAR VOLUME 84.2 fl (80.0-96.0); MONO # 0.8 10^3/uL (0.0-0.8); MONO % 8.2 % (2.0-8.0); NEUTROPHILS # 6.4 10^3/uL (1.5-8.5); PLATELET COUNT, AUTOMATED 367 10^3/uL (150-450); RED BLOOD COUNT 4.87 10^6/uL (4.00-5.40); WHITE BLOOD COUNT 9.3 10^3/uL (4.0-10.0)
[2025-01-03 19:04] LABS: BLOOD UREA NITROGEN 11 MG/DL (9-23); CALCIUM LEVEL 9.4 MG/DL (8.5-10.1); CARBON DIOXIDE LEVEL 26 MMOL/L (20-31); CHLORIDE LEVEL 108 MMOL/L (98-107); CK-MB VALUE MASS < 1.0 NG/ML (<3.6); CPK CREATINE PHOSPHOKINASE 37 U/L (34-145); CREATININE FOR GFR 0.83 MG/DL (0.55-1.30); GLOMERULAR FILTRATION RATE > 60.0 (>60); GLUCOSE, FASTING 105 MG/DL (60-100); POTASSIUM SERUM 3.9 MMOL/L (3.5-5.1); SODIUM LEVEL 143 MMOL/L (136-145)
[2025-01-03 21:17] LABS: D-DIMER QUANT < 0.27 ug/mL (<0.5); INR 0.98; PARTIAL THROMBOPLASTIN TIME 30.8 SECONDS (24.8-34.2); PROTHROMBIN TIME 13.3 SECONDS (12.5-14.5)
[2025-01-03 22:30] VITALS: BP 124/68; O2SAT 99
== END 2025-01-03 22:43 | disposition home or self-care (01) ==
LOC: M ED 17:22
DX: R07.89 Other chest pain (principal); M54.2 Cervicalgia; R94.31 Abnormal electrocardiogram [ECG] [EKG]; K04.7 Periapical abscess without sinus; F41.9 Anxiety disorder, unspecified; Z88.0 Allergy status to penicillin; Z88.2 Allergy status to sulfonamides; Z88.1 Allergy status to other antibiotic agents; Z79.899 Other long term (current) drug therapy; Z63.4 Disappearance and death of family member

== ENCOUNTER → 2025-01-18 | Outpatient (REF) | payer OTHER ==
[2025-01-18 21:01] LABS: MONO SCRN NEGATIVE (NEGATIVE)
== END ==
LOC: M LAB REF 18:15
PROVIDERS: ATTEND Physician Assistant Medical
DX: R53.83 Other fatigue (principal)

== ENCOUNTER 2025-01-27 07:12 | Emergency (ER) | payer OTHER ==
[~2025-01-27] VITALS: Ht 160 cm; Wt 75.3 kg
[2025-01-27] MEDS ORDERED: DICL50TAB (07:20)
[2025-01-27] MEDS ORDERED: DOXY100C3 (07:20)
[2025-01-27] MEDS ORDERED: TOPI-21 (07:20)
[2025-01-27] MEDS ORDERED: RIZA10TA58 (07:20)
[2025-01-27 08:22] LABS: BASO % 0.6 % (0.0-1.0); EOS # 0.3 10^3/uL (0.0-0.5); EOS % 4.6 % (0.0-3.0); HEMOGLOBIN 13.6 g/dl (12.0-15.5); LYMPH # 1.4 10^3/uL (1.5-5.0); LYMPH % 22.3 % (24.0-44.0); MEAN CORPUSCULAR HEMOGLOBIN 29.6 pg (27.0-33.0); MONO # 0.8 10^3/uL (0.0-0.8); MONO % 13.1 % (2.0-8.0); NEUTROPHILS # 3.8 10^3/uL (1.5-8.5); NEUTROPHILS % 59.1 % (36.0-66.0); PLATELET COUNT, AUTOMATED 273 10^3/uL (150-450); WHITE BLOOD COUNT 6.4 10^3/uL (4.0-10.0)
[2025-01-27 08:47] LABS: BLOOD UREA NITROGEN 20 MG/DL (9-23); CALCIUM LEVEL 8.7 MG/DL (8.5-10.1); CARBON DIOXIDE LEVEL 26 MMOL/L (20-31); CHLORIDE LEVEL 112 MMOL/L (98-107); CREATININE FOR GFR 0.79 MG/DL (0.55-1.30); GLOMERULAR FILTRATION RATE > 60.0 (>60); GLUCOSE, FASTING 101 MG/DL (60-100); POTASSIUM SERUM 4.6 MMOL/L (3.5-5.1); SODIUM LEVEL 145 MMOL/L (136-145)
[2025-01-27 09:01] LABS: HCG, SERUM QUALITATIVE NEGATIVE (NEGATIVE)
[2025-01-27] MEDS: KETOROLAC 30 MG/ML 1ML VIAL IV ONE (09:06)
[2025-01-27 12:25] VITALS: BP 116/75; TEMP 97.9; O2SAT 100
== END 2025-01-27 12:27 | disposition home or self-care (01) ==
LOC: M ED 07:12
DX: R68.84 Jaw pain (principal); J01.00 Acute maxillary sinusitis, unspecified; R00.0 Tachycardia, unspecified; Z79.1 Long term (current) use of non-steroidal anti-inflammatories (NSAID); Z79.899 Other long term (current) drug therapy; Z88.0 Allergy status to penicillin; Z88.1 Allergy status to other antibiotic agents; Z88.2 Allergy status to sulfonamides; Z88.8 Allergy status to other drugs, medicaments and biological substances
CPT/HCPCS: 36415; 70486; 80048; 84703; 85025; 96374; 99284; J1885

== ENCOUNTER → 2025-02-08 | Outpatient (CLI) | payer OTHER ==
[~2025-02-08] MED LIST changes: +DICL50TAB; +DOXY100C3; +RIZA10TA58; +TOPI-21
== END ==
LOC: M RAD 08:08
DX: M79.604 Pain in right leg (principal); M79.605 Pain in left leg

== ENCOUNTER → 2025-02-08 | Outpatient (CLI) | payer OTHER | LOC: M RAD 09:30 | DX: M79.605 Pain in left leg (principal); M79.604 Pain in right leg ==

== ENCOUNTER → 2025-02-22 | Outpatient (CLI) | payer OTHER | LOC: M WUC 15:05 | PROVIDERS: ATTEND Physician Assistant | DX: S23.41XA Sprain of ribs, initial encounter (principal); W18.30XA Fall on same level, unspecified, initial encounter; Y92.009 Unspecified place in unspecified non-institutional (private) residence as the place of occurrence of the external cause ==

== ENCOUNTER 2025-02-23 20:15 | Emergency (ER) | payer OTHER ==
[~2025-02-23] VITALS: Ht 160 cm; Wt 70.7 kg
[2025-02-23 20:18] VITALS: TEMP 98.1
[2025-02-23] MEDS: NS (Normal Saline) 0.9% 1,000 ML IV ONE (23:12)
[2025-02-23] MEDS: KETOROLAC 30 MG/ML 1ML VIAL IV ONE (23:13)
[2025-02-23] MEDS: diphenhydrAMINE 50MG/ML VIAL IV ONE (23:13)
[2025-02-23] MEDS: METOCLOPRAMIDE INJ 10MG/2ML VIAL IV ONE (23:13)
[2025-02-24 00:45] VITALS: BP 90/55; O2SAT 98
== END 2025-02-24 00:53 | disposition home or self-care (01) ==
LOC: M ED 20:15
DX: G43.909 Migraine, unspecified, not intractable, without status migrainosus (principal); Z79.1 Long term (current) use of non-steroidal anti-inflammatories (NSAID); Z79.899 Other long term (current) drug therapy; Z88.0 Allergy status to penicillin; Z88.1 Allergy status to other antibiotic agents; Z88.2 Allergy status to sulfonamides; Z88.5 Allergy status to narcotic agent; Z88.8 Allergy status to other drugs, medicaments and biological substances
CPT/HCPCS: 96361; 96374; 99284; J1100; J1200; J1885; J2765

== ENCOUNTER 2025-02-27 20:11 | Emergency (ER) | payer OTHER ==
[~2025-02-27] VITALS: Ht 160 cm; Wt 70.9 kg
[2025-02-27 20:54] LABS: BASO # 0.1 10^3/uL (0.0-0.2); BASO % 0.5 % (0.0-1.0); EOS # 0.1 10^3/uL (0.0-0.5); EOS % 1.4 % (0.0-3.0); HEMATOCRIT 39.5 % (36.0-47.0); HEMOGLOBIN 13.7 g/dl (12.0-15.5); LYMPH % 32.1 % (24.0-44.0); MEAN CORPUSCULAR HGB CONC 34.7 g/dl (32.0-36.5); MEAN CORPUSCULAR VOLUME 83.7 fl (80.0-96.0); MONO # 0.8 10^3/uL (0.0-0.8); MONO % 8.6 % (2.0-8.0); NEUTROPHILS # 5.3 10^3/uL (1.5-8.5); PLATELET COUNT, AUTOMATED 332 10^3/uL (150-450); RED BLOOD COUNT 4.72 10^6/uL (4.00-5.40); WHITE BLOOD COUNT 9.3 10^3/uL (4.0-10.0)
[2025-02-27 21:18] LABS: HCG, SERUM QUALITATIVE NEGATIVE (NEGATIVE)
[2025-02-27 21:19] LABS: CK-MB VALUE MASS < 1.0 NG/ML (<3.6)
[2025-02-27 21:21] LABS: ALBUMIN 3.7 G/DL (3.2-5.2); ALKALINE PHOSPHATASE 83 U/L (35-104); ALT/SGPT 15 U/L (7.0-40); AST/SGOT < 8 U/L (<34); BILIRUBIN,DIRECT 0.2 MG/DL (<0.4); BILIRUBIN,TOTAL 0.5 MG/DL (0.3-1.2); BLOOD UREA NITROGEN 18 MG/DL (9-23); CALCIUM LEVEL 8.9 MG/DL (8.5-10.1); CARBON DIOXIDE LEVEL 26 MMOL/L (20-31); CHLORIDE LEVEL 108 MMOL/L (98-107); CREATININE FOR GFR 0.84 MG/DL (0.55-1.30); GLOMERULAR FILTRATION RATE > 90.0 (>60); GLUCOSE, FASTING 99 MG/DL (60-100); POTASSIUM SERUM 3.6 MMOL/L (3.5-5.1); SODIUM LEVEL 147 MMOL/L (136-145); TOTAL PROTEIN 6.3 G/DL (5.7-8.2)
[2025-02-27 21:22] LABS: CPK CREATINE PHOSPHOKINASE 24 U/L (34-145); MB/CK RELATIVE INDEX 4.16 (< OR =4)
[2025-02-27] MEDS ORDERED: ISOVUE-370 76% 100ML VIAL As Ordered ONE (21:25)
[2025-02-27] MEDS: KETOROLAC 30 MG/ML 1ML VIAL IV ONE (21:44)
[2025-02-27 23:06] VITALS: BP 113/78; TEMP 98.1; O2SAT 99
== END 2025-02-27 23:12 | disposition home or self-care (01) ==
LOC: M ED 20:11
DX: R07.9 Chest pain, unspecified (principal); J98.11 Atelectasis; I49.3 Ventricular premature depolarization; G40.909 Epilepsy, unspecified, not intractable, without status epilepticus; F41.9 Anxiety disorder, unspecified; F32.A Depression, unspecified; G43.909 Migraine, unspecified, not intractable, without status migrainosus; Z88.0 Allergy status to penicillin; Z88.1 Allergy status to other antibiotic agents; Z88.2 Allergy status to sulfonamides; Z88.5 Allergy status to narcotic agent; Z79.1 Long term (current) use of non-steroidal anti-inflammatories (NSAID); Z79.899 Other long term (current) drug therapy
CPT/HCPCS: 71045; 71275; 80048; 80076; 82550; 82553; 84484; 84703; 85025; 93005; 96374; 99284; J1885; Q9967

== ENCOUNTER → 2025-03-01 | Outpatient (CLI) | payer OTHER | LOC: M RAD 17:39 | PROVIDERS: ATTEND Physician Assistant Medical | DX: S23.41XA Sprain of ribs, initial encounter (principal); X58.XXXA Exposure to other specified factors, initial encounter; Y92.9 Unspecified place or not applicable; Y93.9 Activity, unspecified; Y99.9 Unspecified external cause status ==

== ENCOUNTER 2025-03-06 19:47 | Emergency (ER) | payer OTHER ==
[~2025-03-06] VITALS: Ht 160 cm; Wt 70.4 kg
[2025-03-06 19:50] VITALS: BP 125/71; TEMP 98.2; O2SAT 96
[2025-03-06] MEDS: PROPARACAINE 0.5% OPHTH SOL 15ML OD ONE (20:15)
[2025-03-06] MEDS: FLUORESCEIN OPHTH 1MG STRIP OD ONE (20:15)
[2025-03-06] MEDS: FLUORESCEIN OPHTH 1MG STRIP OU ONE (20:20)
== END 2025-03-06 20:49 | disposition home or self-care (01) ==
LOC: M ED 19:47
DX: T26.91XA Corrosion of right eye and adnexa, part unspecified, initial encounter (principal); F41.9 Anxiety disorder, unspecified; F32.A Depression, unspecified; Z88.0 Allergy status to penicillin; Z88.1 Allergy status to other antibiotic agents; Z88.2 Allergy status to sulfonamides; Z88.5 Allergy status to narcotic agent; Z79.899 Other long term (current) drug therapy; Y93.89 Activity, other specified; Y92.9 Unspecified place or not applicable

== ENCOUNTER 2025-03-07 14:17 | Emergency (ER) | payer OTHER ==
[~2025-03-07] VITALS: Ht 160 cm; Wt 75.4 kg
[2025-03-07 14:28] VITALS: TEMP 97.9
[2025-03-07] MEDS: ACETAMINOPHEN 325 MG TAB PO ONE (16:19)
[2025-03-07] MEDS: NS (Normal Saline) 0.9% 1,000 ML IV ONE (16:19)
[2025-03-07 17:06] LABS: BASO % 0.4 % (0.0-1.0); EOS # 0.2 10^3/uL (0.0-0.5); EOS % 1.8 % (0.0-3.0); HEMATOCRIT 37.4 % (36.0-47.0); HEMOGLOBIN 12.6 g/dl (12.0-15.5); LYMPH # 2.8 10^3/uL (1.5-5.0); MEAN CORPUSCULAR HEMOGLOBIN 29.2 pg (27.0-33.0); MEAN CORPUSCULAR HGB CONC 33.7 g/dl (32.0-36.5); MEAN CORPUSCULAR VOLUME 86.6 fl (80.0-96.0); MONO # 0.8 10^3/uL (0.0-0.8); MONO % 7.9 % (2.0-8.0); NEUTROPHILS # 6.5 10^3/uL (1.5-8.5); NEUTROPHILS % 62.4 % (36.0-66.0); PLATELET COUNT, AUTOMATED 276 10^3/uL (150-450); RED BLOOD COUNT 4.32 10^6/uL (4.00-5.40); WHITE BLOOD COUNT 10.4 10^3/uL (4.0-10.0)
[2025-03-07 17:21] LABS: INR 1.06; PARTIAL THROMBOPLASTIN TIME 30.1 SECONDS (24.8-34.2); PROTHROMBIN TIME 14.1 SECONDS (12.5-14.5)
[2025-03-07 17:31] LABS: CK-MB VALUE MASS < 1.0 NG/ML (<3.6)
[2025-03-07 17:33] LABS: ALBUMIN 3.1 G/DL (3.2-5.2); ALKALINE PHOSPHATASE 85 U/L (35-104); ALT/SGPT 25 U/L (7.0-40); AST/SGOT 11 U/L (<34); BILIRUBIN,DIRECT 0.2 MG/DL (<0.4); BILIRUBIN,TOTAL 0.4 MG/DL (0.3-1.2); BLOOD UREA NITROGEN 20 MG/DL (9-23); CALCIUM LEVEL 8.4 MG/DL (8.5-10.1); CARBON DIOXIDE LEVEL 28 MMOL/L (20-31); CHLORIDE LEVEL 111 MMOL/L (98-107); CPK CREATINE PHOSPHOKINASE 19 U/L (34-145); CREATININE FOR GFR 0.82 MG/DL (0.55-1.30); GLOMERULAR FILTRATION RATE > 90.0 (>60); GLUCOSE, FASTING 87 MG/DL (60-100); HCG, SERUM QUALITATIVE NEGATIVE (NEGATIVE); MB/CK RELATIVE INDEX 5.26 (< OR =4); POTASSIUM SERUM 3.7 MMOL/L (3.5-5.1); SODIUM LEVEL 148 MMOL/L (136-145); TOTAL PROTEIN 5.3 G/DL (5.7-8.2)
[2025-03-07 17:35] LABS: FREE T4 1.02 NG/DL (0.89-1.76); THYROID STIMULATING HORMONE 0.805 uIU/ML (0.55-4.78)
[2025-03-07 18:00] VITALS: O2SAT 99
[2025-03-07 18:02] VITALS: BP 132/70
== END 2025-03-07 18:20 | disposition home or self-care (01) ==
LOC: M ED 14:17 → EDBD 14:17 → M ED 18:20
DX: R55 Syncope and collapse (principal); R07.9 Chest pain, unspecified; F41.9 Anxiety disorder, unspecified; Z86.69 Personal history of other diseases of the nervous system and sense organs; G40.909 Epilepsy, unspecified, not intractable, without status epilepticus; Z88.1 Allergy status to other antibiotic agents; Z88.0 Allergy status to penicillin; Z88.2 Allergy status to sulfonamides; Z88.6 Allergy status to analgesic agent; Z79.82 Long term (current) use of aspirin; Z79.1 Long term (current) use of non-steroidal anti-inflammatories (NSAID); Z79.2 Long term (current) use of antibiotics; Z79.51 Long term (current) use of inhaled steroids; Z79.818 Long term (current) use of other agents affecting estrogen receptors and estrogen levels; Z79.899 Other long term (current) drug therapy; Z79.01 Long term (current) use of anticoagulants

== ENCOUNTER 2025-03-08 00:19 | Emergency (ER) | payer OTHER ==
[~2025-03-08] VITALS: Ht 160 cm; Wt 70.5 kg
[2025-03-08] MEDS: ACETAMINOPHEN *IV* 1,000 MG in IV 1 EA IV ONE (03:19)
[2025-03-08] MEDS: KETOROLAC 30 MG/ML 1ML VIAL IV ONE (03:19)
[2025-03-08] MEDS: NS (Normal Saline) 0.9% 1,000 ML IV ONE (03:20)
[2025-03-08] MEDS: MAG SULF 1GM/100ML (MAG RUN) 1 GM in IV 1 EA IV ONE (03:53)
[2025-03-08 05:04] VITALS: BP 121/76; TEMP 97.6; O2SAT 97
== END 2025-03-08 05:10 | disposition home or self-care (01) ==
LOC: M ED 00:19
DX: G43.909 Migraine, unspecified, not intractable, without status migrainosus (principal); Z88.0 Allergy status to penicillin; Z88.1 Allergy status to other antibiotic agents; Z88.2 Allergy status to sulfonamides; Z79.1 Long term (current) use of non-steroidal anti-inflammatories (NSAID); Z79.899 Other long term (current) drug therapy
CPT/HCPCS: 70450; 96365; 96366; 96375; 99284; J0131; J1100; J1885; J3475

== ENCOUNTER → 2025-03-09 | Outpatient (REF) | payer OTHER | LOC: M LAB REF 16:37 | PROVIDERS: ATTEND Physician Assistant | DX: B34.9 Viral infection, unspecified (principal) ==

== ENCOUNTER 2025-03-12 22:56 | Emergency (ER) | payer OTHER ==
[~2025-03-12] VITALS: Ht 160 cm; Wt 72.6 kg
[2025-03-13] MEDS: dexAMETHasone 20MG/5ML VIAL IV ONE (01:50)
[2025-03-13] MEDS: KETOROLAC 30 MG/ML 1ML VIAL IV ONE (01:52)
[2025-03-13] MEDS: NS 500 ML IV ONE (01:52)
[2025-03-13 03:35] VITALS: BP 126/74; TEMP 99; O2SAT 96
== END 2025-03-13 03:37 | disposition home or self-care (01) ==
LOC: M ED 22:56
DX: G43.909 Migraine, unspecified, not intractable, without status migrainosus (principal); B34.8 Other viral infections of unspecified site; G40.909 Epilepsy, unspecified, not intractable, without status epilepticus; Z79.899 Other long term (current) drug therapy; Z79.1 Long term (current) use of non-steroidal anti-inflammatories (NSAID); Z88.0 Allergy status to penicillin; Z88.2 Allergy status to sulfonamides; Z88.1 Allergy status to other antibiotic agents; Z88.5 Allergy status to narcotic agent; Z88.8 Allergy status to other drugs, medicaments and biological substances
CPT/HCPCS: 87486; 87581; 87633; 87798; 96361; 96374; 96375; 99284; J1100; J1885

== ENCOUNTER 2025-03-15 15:45 | Emergency (ER) | payer OTHER ==
[~2025-03-15] VITALS: Ht 160 cm; Wt 71.6 kg
[2025-03-15] MEDS ORDERED: CLON1TAB8 (15:54)
[2025-03-15 18:16] LABS: BASO % 0.4 % (0.0-1.0); EOS # 0.2 10^3/uL (0.0-0.5); HEMATOCRIT 37.6 % (36.0-47.0); HEMOGLOBIN 12.5 g/dl (12.0-15.5); LYMPH # 1.8 10^3/uL (1.5-5.0); LYMPH % 22.8 % (24.0-44.0); MEAN CORPUSCULAR HEMOGLOBIN 29.4 pg (27.0-33.0); MEAN CORPUSCULAR HGB CONC 33.2 g/dl (32.0-36.5); MEAN CORPUSCULAR VOLUME 88.5 fl (80.0-96.0); MONO # 0.7 10^3/uL (0.0-0.8); MONO % 8.6 % (2.0-8.0); NEUTROPHILS % 64.8 % (36.0-66.0); PLATELET COUNT, AUTOMATED 250 10^3/uL (150-450); RED BLOOD COUNT 4.25 10^6/uL (4.00-5.40); WHITE BLOOD COUNT 7.7 10^3/uL (4.0-10.0)
[2025-03-15] MEDS: MAG SULF 1GM/100ML (MAG RUN) 1 GM in IV 1 EA IV ONE (18:30)
[2025-03-15] MEDS: NS (Normal Saline) 0.9% 1,000 ML IV ONE (18:30)
[2025-03-15] MEDS: KETOROLAC 30 MG/ML 1ML VIAL IV ONE (18:30)
[2025-03-15 18:38] LABS: BLOOD UREA NITROGEN 10 MG/DL (9-23); CALCIUM LEVEL 8.2 MG/DL (8.5-10.1); CARBON DIOXIDE LEVEL 28 MMOL/L (20-31); CHLORIDE LEVEL 108 MMOL/L (98-107); CREATININE FOR GFR 0.79 MG/DL (0.55-1.30); GLOMERULAR FILTRATION RATE > 90.0 (>60); GLUCOSE, FASTING 98 MG/DL (60-100); POTASSIUM SERUM 4.1 MMOL/L (3.5-5.1); SODIUM LEVEL 145 MMOL/L (136-145)
[2025-03-15] MEDS: VALPROATE SOD INJ 1,000 MG in D5W 50 ML IV ONE (20:38)
[2025-03-15 22:05] VITALS: BP 128/76; TEMP 98.3; O2SAT 100
== END 2025-03-15 22:26 | disposition home or self-care (01) ==
LOC: M ED 15:45
DX: G43.909 Migraine, unspecified, not intractable, without status migrainosus (principal); G40.909 Epilepsy, unspecified, not intractable, without status epilepticus; F41.9 Anxiety disorder, unspecified; F32.A Depression, unspecified; Z86.718 Personal history of other venous thrombosis and embolism; Z88.0 Allergy status to penicillin; Z88.1 Allergy status to other antibiotic agents; Z88.2 Allergy status to sulfonamides; Z88.5 Allergy status to narcotic agent; Z88.8 Allergy status to other drugs, medicaments and biological substances; Z79.1 Long term (current) use of non-steroidal anti-inflammatories (NSAID); Z79.899 Other long term (current) drug therapy
CPT/HCPCS: 70450; 80048; 84702; 85025; 96365; 96366; 96375; 99284; J1885; J3475

== ENCOUNTER → 2025-03-18 | Outpatient (REF) | payer OTHER ==
[~2025-03-18] MED LIST changes: +CLON1TAB8
== END ==
LOC: M LAB REF 16:54
PROVIDERS: ATTEND Physician Assistant
DX: B34.9 Viral infection, unspecified (principal)

== ENCOUNTER → 2025-08-24 | Outpatient (REF) | payer OTHER ==
[~2025-08-24] MED LIST changes: +CARB-19 PO; -CARB1TAB20 PO; +CETI-24 PO; -IBUP-1022; -IBUP-1022 PO; +IBUP600T42; +LAMO-18 PO; -LAMO25TA4 PO; +NADO40TA40; +OXYM15SP2
== END ==
LOC: M LAB REF 16:48
PROVIDERS: ATTEND Physician Assistant
DX: B34.9 Viral infection, unspecified (principal)

== ENCOUNTER → 2025-09-14 | Outpatient (REF) | payer OTHER | LOC: M LAB REF 11:57 | PROVIDERS: ATTEND Physician Assistant | DX: B34.9 Viral infection, unspecified (principal) ==